=== PATIENT | female | born 1980 ===

== ENCOUNTER 2017-08-05 04:15 | Inpatient (IN) | payer MEDICAID ==
[2017-08-05] MEDS ORDERED: Sodium Chloride 0.9% 1,000 ML IV STA (04:34)
[2017-08-05] MEDS ORDERED: Ondansetron 4 MG/2 ML SDV IVPUSH ONE ×2 (04:34→10:12)
[2017-08-05] MEDS ORDERED: HYDROmorphone 1 MG/ML Syringe IVPUSH ONE (04:36)
--- NOTE | 2017-08-05 04:40 | EDM.PDOC ---
ED HPI GENERAL MEDICAL PROBLEM - General Chief Complaint: Gastrointestinal Problem Stated Complaint: VOMITING/RECTAL BLEEDING/ABDOMINAL PAIN Time Seen by Provider: 08/05/17 04:31 Source of Information: Reports: Patient History Limitations: Reports: No Limitations - History of Present Illness INITIAL COMMENTS - FREE TEXT/NARRATIVE: The patient presents with abdominal pain, nausea, vomiting and bloody diarrhea. This all started last night around 6pm. She says the pain is around the umbilicus. She has blood in her stool. She has fever and chills. She denies chest pain or shortness of breath. She has no dysuria. She has not been around anyone who is sick. She has not eaten any bad food. She still has her gallbladder and appendix. Onset: Gradual Duration: Day(s): (Yesterday at 6pm) Location: Reports: Abdomen Quality: Reports: Sharp Severity: Moderate Improves with: Reports: None Worsens with: Reports: None Associated Symptoms: Reports: Fever/Chills, Nausea/Vomiting. Denies: Chest Pain , Cough, Headaches, Shortness of Breath Abdomen Pain Score (Numeric/FACES): 10 - Related Data Allergies Allergy/AdvReac Type Severity Reaction Status Date / Time bupropion HCl Allergy Cannot Verified 08/05/17 04:25 [From Wellbutrin] Remember meloxicam [From Mobic] Allergy Cannot Verified 08/05/17 04:25 Remember Penicillins AdvReac YEAST Verified 08/05/17 04:25 INFECTION Home Meds: Home Meds . 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 (See Below) Other OB/BYN History: breast mass, mastodynia, nipple discharge, vaginitis, vaginosis Musculoskeletal History: Reports: Back Pain, Chronic Other Musculoskeletal History: back pain, carpal tunnel syndrome, back spasms Neurological History: Reports: None Other Neuro History: tingling in the feet CLBP Psychiatric History: Reports: Anxiety, Depression, Panic Attack Other Psychiatric History: insomnia Endocrine/Metabolic History: Reports: None Immunologic History: Reports: None Oncologic (Cancer) History: Reports: None Dermatologic History: Reports: None - Past Surgical History HEENT Surgical History: Reports: Tonsillectomy Female Surgical History: Reports: Hysterectomy, Tubal Ligation Musculoskeletal Surgical History: Reports: Carpal Tunnel Social & Family History - Family History Cardiac: Reports: Hypertension Immunologic: Reports: Other (See Below) Other Immunologic Family History: brother has hepatits c Oncologic: Reports: Brain, Breast, Esophageal - Tobacco Use Smoking Status *Q: Current Every Day Smoker Years of Tobacco use: 20 Packs/Tins Daily: 0.5 Second Hand Smoke Exposure: Yes - Alcohol Use Days Per Week of Alcohol Use: 0 - Recreational Drug Use Recreational Drug Use: No Drug Use in Last 12 Months: No ED ROS GENERAL - Review of Systems Review Of Systems: See Below Constitutional: Reports: Fever, Chills HEENT: Reports: No Symptoms Respiratory: Reports: No Symptoms Cardiovascular: Reports: No Symptoms Endocrine: Reports: No Symptoms GI/Abdominal: Reports: Abdominal Pain, Diarrhea, Nausea, Vomiting : Reports: No Symptoms Musculoskeletal: Reports: No Symptoms ED EXAM, GI/ABD - Physical Exam Exam: See Below Exam Limited By: No Limitations General Appearance: Alert, No Apparent Distress Ears: Normal External Exam Nose: Normal Inspection Head: Atraumatic, Normocephalic Neck: Normal Inspection Respiratory/Chest: No Respiratory Distress, Lungs Clear, Normal Breath Sounds Cardiovascular: Regular Rate, Rhythm, No Edema, No Murmur GI/Abdominal Exam: Soft, No Organomegaly, No Mass, Tender (Moderate periumbilical pain) Back Exam: Normal Inspection Extremities: Normal Inspection Course - Vital Signs Last Recorded V/S: Last Vital Signs Temp 97.9 F 08/05/17 04:26 Pulse 69 08/05/17 04:26 Resp 16 08/05/17 04:26 BP 162/96 H 08/05/17 04:26 Pulse Ox 100 08/05/17 04:26 - Orders/Labs/Meds Orders: Active Orders 24 hr Category Date Time Status Peripheral IV Care [RC] . DIRECTED Care 08/05/17 04:34 Active CULTURE STOOL + SHIGATOX [RM] Stat Lab 08/05/17 04:39 Received Levofloxacin/Dextrose 5%-Water [Levaquin in D5W 500 MG/ Med 08/05/17 06:41 Active 100 ML] 500 mg Premix Bag 1 bag IV ONETIME Sodium Chloride 0.9% [Saline Flush] Med 08/05/17 04:34 Active 10 ml FLUSH ASDIRECTED PRN metroNIDAZOLE/Normal Saline [Flagyl 500 MG in NS 100 ML Med 08/05/17 06:41 Active ] 500 mg Premix Bag 1 bag IV ONETIME ED Antiemetic Medication Reflex [OM.PC] Stat Oth 08/05/17 04:35 Ordered Peripheral IV Insertion Adult [OM.PC] Stat Oth 08/05/17 04:34 Ordered Medication Orders Levofloxacin/Dextrose 500 mg/ (Premix) 100 mls @ 100 mls/hr IV ONETIME ONE Stop: 08/05/17 07:40 Last Admin: 08/05/17 06:47 Dose: 100 mls/hr Metronidazole 500 mg/ Premix 100 mls @ 100 mls/hr IV ONETIME ONE Stop: 08/05/17 07:40 Sodium Chloride (Saline Flush) 10 ml FLUSH ASDIRECTED PRN PRN Reason: Keep Vein Open Last Admin: 08/05/17 06:07 Dose: 10 ml Admin: 08/05/17 05:23 Dose: 10 ml Labs: Laboratory Tests 08/05/17 08/05/17 08/05/17 Range/Units 04:33 04:33 04:33 WBC 17.90 H (3.98-10.04) K/mm3 RBC 5.84 H (3.98-5.22) M/mm3 Hgb 17.4 H (11.2-15.7) gm/L Hct 50.8 H (34.1-44.9) % MCV 87.0 (79.4-94.8) fl MCH 29.8 (25.6-32.2) pg MCHC 34.3 (32.2-35.5) g/dl RDW Std Deviation 41.7 (36.4-46.3) fL Plt Count 241 (182-369) K/mm3 MPV 10.9 (9.4-12.3) fl Neut % (Auto) 89.1 H (34.0-71.1) % Lymph % (Auto) 6.7 L (19.3-51.7) % [place] % (Auto) 3.5 L (4.7-12.5) % Eos % (Auto) 0.1 L (0.7-5.8) Baso % (Auto) 0.2 (0.1-1.2) % Neut # (Auto) 15.94 H (1.56-6.13) K/mm3 Lymph # (Auto) 1.20 (1.18-3.74) K/mm3 [place] # (Auto) 0.63 H (0.24-0.36) K/mm3 Eos # (Auto) 0.01 L (0.04-0.36) K/mm3 Baso # (Auto) 0.04 (0.01-0.08) K/mm3 Manual Slide Review Normal smear Sodium 143 (136-145) mEq/L Potassium 4.0 (3.5-5.1) mEq/L Chloride 104 (98-107) mEq/L Carbon Dioxide 23 (21-32) mEq/L Anion Gap 20.0 H (5-15) BUN 16 (7-18) mg/dL Creatinine 0.9 (0.55-1.02) mg/dL Est Cr Clr Drug Dosing 67.03 mL/min Estimated GFR (MDRD) > 60 (>60) mL/min BUN/Creatinine Ratio 17.8 (14-18) Glucose 123 H (74-106) mg/dL Calcium 9.8 (8.5-10.1) mg/dL Total Bilirubin 0.5 (0.2-1.0) mg/dL AST 20 (15-37) U/L ALT 40 (14-59) U/L Alkaline Phosphatase 147 H (46-116) U/L Total Protein 8.7 H (6.4-8.2) g/dl Albumin 4.9 (3.4-5.0) g/dl Globulin 3.8 gm/dL Albumin/Globulin Ratio 1.3 (1-2) Lipase 78 (73-393) U/L HCG, Qual Negative (NEGATIVE) Urine Color (Yellow) Urine Appearance (Clear) Urine pH (5.0-8.0) Ur Specific [place] (1.005-1.030) Urine Protein (Negative) Urine Glucose (UA) (Negative) Urine Ketones (Negative) Urine Occult Blood (Negative) Urine Nitrite (Negative) Urine Bilirubin (Negative) Urine Urobilinogen (0.2-1.0) Ur Leukocyte Esterase (Negative) Urine RBC (0-5) /hpf Urine WBC (0-5) /hpf Ur Epithelial Cells (0-5) /hpf Amorphous Sediment (NOT SEEN) /hpf Urine Bacteria (FEW) /hpf Urine Mucus (FEW) /hpf C.difficile 027-[id number] C. difficile Tox (PCR) 08/05/17 08/05/17 Range/Units 04:34 04:34 WBC (3.98-10.04) K/mm3 RBC (3.98-5.22) M/mm3 Hgb (11.2-15.7) gm/L Hct (34.1-44.9) % MCV (79.4-94.8) fl MCH (25.6-32.2) pg MCHC (32.2-35.5) g/dl RDW Std Deviation (36.4-46.3) fL Plt Count (182-369) K/mm3 MPV (9.4-12.3) fl Neut % (Auto) (34.0-71.1) % Lymph % (Auto) (19.3-51.7) % [place] % (Auto) (4.7-12.5) % Eos % (Auto) (0.7-5.8) Baso % (Auto) (0.1-1.2) % Neut # (Auto) (1.56-6.13) K/mm3 Lymph # (Auto) (1.18-3.74) K/mm3 [place] # (Auto) (0.24-0.36) K/mm3 Eos # (Auto) (0.04-0.36) K/mm3 Baso # (Auto) (0.01-0.08) K/mm3 Manual Slide Review Sodium (136-145) mEq/L Potassium (3.5-5.1) mEq/L Chloride (98-107) mEq/L Carbon Dioxide (21-32) mEq/L Anion Gap (5-15) BUN (7-18) mg/dL Creatinine (0.55-1.02) mg/dL Est Cr Clr Drug Dosing mL/min Estimated GFR (MDRD) (>60) mL/min BUN/Creatinine Ratio (14-18) Glucose (74-106) mg/dL Calcium (8.5-10.1) mg/dL Total Bilirubin (0.2-1.0) mg/dL AST (15-37) U/L ALT (14-59) U/L Alkaline Phosphatase (46-116) U/L Total Protein (6.4-8.2) g/dl Albumin (3.4-5.0) g/dl Globulin gm/dL Albumin/Globulin Ratio (1-2) Lipase (73-393) U/L HCG, Qual (NEGATIVE) Urine Color Yellow (Yellow) Urine Appearance Turbid H (Clear) Urine pH 5.5 (5.0-8.0) Ur Specific [place] > or = 1.030 (1.005-1.030) Urine Protein 2+ H (Negative) Urine Glucose (UA) Negative (Negative) Urine Ketones 2+ H (Negative) Urine Occult Blood 2+ H (Negative) Urine Nitrite Negative (Negative) Urine Bilirubin 1+ H (Negative) Urine Urobilinogen 0.2 (0.2-1.0) Ur Leukocyte Esterase Negative (Negative) Urine RBC 0-5 (0-5) /hpf Urine WBC 0-5 (0-5) /hpf Ur Epithelial Cells 5-10 H (0-5) /hpf Amorphous Sediment Many H (NOT SEEN) /hpf Urine Bacteria Moderate H (FEW) /hpf Urine Mucus Not seen (FEW) /hpf C.difficile [id number]-[id number] Presumptive negative C. difficile Tox (PCR) Negative Meds: Medications Generic Name Dose Route Start Last Admin Trade Name Freq PRN Reason Stop Dose Admin Levofloxacin/Dextrose 500 mg/ 100 mls @ 100 mls/hr 08/05/17 06:41 08/05/17 06 :47 Premix IV 08/05/17 07:40 100 mls/hr ONETIME ONE Administration Metronidazole 500 mg/ Premix 100 mls @ 100 mls/hr 08/05/17 06:41 IV 08/05/17 07:40 ONETIME ONE Sodium Chloride 10 ml 08/05/17 04:34 08/05/17 06:07 Saline Flush FLUSH 10 ml ASDIRECTED PRN Administration Keep Vein Open Discontinued Medications Generic Name Dose Route Start Last Admin Trade Name Freq PRN Reason Stop Dose Admin Diatrizoate Meglum/Diatrizoate Sod 90 ml 08/05/17 05:49 08/05/17 06:07 Gastrografin 37% PO 08/05/17 05:50 90 ml ONETIME ONE Administration Hydromorphone HCl 1 mg 08/05/17 04:36 08/05/17 05:00 Dilaudid IVPUSH 08/05/17 04:37 1 mg ONETIME ONE Administration Hydromorphone HCl 0.5 mg 08/05/17 06:21 08/05/17 06:30 Dilaudid IVPUSH 08/05/17 06:22 0.5 mg ONETIME ONE Administration Sodium Chloride 1,000 mls @ 1,000 mls/hr 08/05/17 04:34 08/05/17 05:00 Normal Saline IV 08/05/17 05:33 1,000 mls/hr .BOLUS STA Administration Iopamidol 125 ml 08/05/17 05:49 08/05/17 06:07 Isovue-300 (61%) IVPUSH 08/05/17 05:50 125 ml ONETIME ONE Administration Metoclopramide HCl 10 mg 08/05/17 06:21 08/05/17 06:30 Reglan IVPUSH 08/05/17 06:22 10 mg ONETIME ONE Administration Ondansetron HCl 4 mg 08/05/17 04:34 08/05/17 05:00 Zofran IVPUSH 08/05/17 04:35 4 mg ONETIME ONE Administration - Re-Assessments/Exams Free Text/Narrative Re-Assessment/Exam: 08/05/17 04:39 I ordered an IV NS 1L bolus, zofran 4mg IV, dilaudid 1mg IV, labs, US and a CT of her abdomen and pelvis. 08/05/17 06:43 Her WBC was elevated at 17.9. Her Hgb was elevated at 17.4. Her alk phos was elevated at 147. Her HCG was negative. Her lipase was negative. Her UA shows no UTI. Her c-dif was negative. Her stool had some WBCs in it. Her CT shows diffuse colonic wall thickening most prominent within the transverse and right colon. Findings are compatible with nonspecific colitis. Slightly dilated upper small bowel most likely representing a mild focal ileus due to the colitis. Fatty infiltration within the liver. She had more pain so I ordered dilaudid 0.5mg IV and reglan 10mg IV. I ordered flagyl 500mg IV and levaquin 500mg IV. 08/05/17 07:00 I feel she needs to be admitted. I talked with Dr Gill and she agreed to the admission. Departure - Departure Time of Disposition: 07:05 Disposition: Admitted As Inpatient 65 Clinical Impression: Colitis, Ileus, Hematochezia - Discharge Information Referrals: PCP,None [Primary Care Provider] - Forms: ED Department Discharge - My Orders Last 24 Hours: My Active Orders 08/05/17 04:34 Peripheral IV Care [RC] . DIRECTED Sodium Chloride 0.9% [Saline Flush] 10 ml FLUSH ASDIRECTED PRN Peripheral IV Insertion Adult [OM.PC] Stat 08/05/17 04:35 ED Antiemetic Medication Reflex [OM.PC] Stat 08/05/17 04:39 CULTURE STOOL + SHIGATOX [RM] Stat 08/05/17 06:41 Levofloxacin/Dextrose 5%-Water [Levaquin in D5W 500 MG/100 ML] 500 mg Premix Bag 1 bag IV ONETIME metroNIDAZOLE/Normal Saline [Flagyl 500 MG in NS 100 ML] 500 mg Premix Bag 1 bag IV ONETIME - Assessment/Plan Last 24 Hours: My Active Orders 08/05/17 04:34 Peripheral IV Care [RC] . DIRECTED Sodium Chloride 0.9% [Saline Flush] 10 ml FLUSH ASDIRECTED PRN Peripheral IV Insertion Adult [OM.PC] Stat 08/05/17 04:35 ED Antiemetic Medication Reflex [OM.PC] Stat 08/05/17 04:39 CULTURE STOOL + SHIGATOX [RM] Stat 08/05/17 06:41 Levofloxacin/Dextrose 5%-Water [Levaquin in D5W 500 MG/100 ML] 500 mg Premix Bag 1 bag IV ONETIME metroNIDAZOLE/Normal Saline [Flagyl 500 MG in NS 100 ML] 500 mg Premix Bag 1 bag IV ONETIME
[2017-08-05] MEDS: Sodium Chloride 0.9% 10 ML Syringe FLUSH PRN ×2 (05:23→06:07)
[2017-08-05] MEDS ORDERED: Diatrizoate Meglumine/Diatrizoate Sodium 37% 120 ML Bottle PO ONE (05:49)
[2017-08-05] MEDS ORDERED: Iopamidol 612 MG/ML 150 ML Bottle IVPUSH ONE (05:49)
[2017-08-05] MEDS ORDERED: Metoclopramide 10 MG/2 ML SDV IVPUSH ONE (06:21)
[2017-08-05] MEDS ORDERED: HYDROmorphone 0.5 MG/0.5 ML Syringe IVPUSH ONE (06:21)
--- NOTE | 2017-08-05 06:25 | CT ---
CT abdomen and pelvis Technique: Multiple axial sections were obtained from above the dome of the diaphragm inferiorly to the pubic symphysis. Intravenous and oral contrast was utilized. Delayed image bladder. Comparison: Prior CT abdomen exam of 10/01/13. Findings: Bowel wall thickening noted within the colon most prominent within portions of the transverse colon and right colon. Findings are compatible with nonspecific colitis. Visualized lung bases shows nothing acute. Liver shows mild fatty infiltration. No calcified gallstones are seen within the gallbladder. Spleen appears within normal limits. Adrenal glands show no nodule. Kidneys show contrast enhancement without hydronephrosis or mass. Pancreas is within normal limits. Slightly dilated upper small bowel loops are seen most likely due to slight focal ileus due to the colitis. Bowel is otherwise unremarkable. No pelvic mass or adenopathy is seen. Appendix is not definitely visualized. Terminal ileum appears unremarkable. No free fluid is seen. Delayed images shows contrast within the distal ureters and within the bladder. Bone window settings were reviewed which appear within normal limits for the patient's age. Impression: 1. Diffuse colonic wall thickening most prominent within the transverse and right colon. Findings are compatible with nonspecific colitis. 2. Slightly dilated upper small bowel most likely representing a mild focal ileus due to the colitis. 3. Fatty infiltration within the liver. Diagnostic code #3
[2017-08-05] MEDS ORDERED: Levofloxacin/Dextrose 5%-Water 500 MG in Premix Bag 1 BAG IV ONE (06:41)
[2017-08-05] MEDS ORDERED: metroNIDAZOLE/Normal Saline 500 MG in Premix Bag 1 BAG IV ONE (06:41)
[2017-08-05] MEDS ORDERED: HYDROmorphone 1 MG/ML Syringe IVPUSH STA (07:46)
[2017-08-05] MEDS ORDERED: HYDROmorphone 0.5 MG/0.5 ML Syringe IVPUSH STA ×2 (09:54→12:15)
[2017-08-05] MEDS ORDERED: Ondansetron 4 MG Tab.DIS PO PRN (12:16)
[2017-08-05] MEDS ORDERED: Albuterol 0.083% 2.5 MG/3 ML Neb Soln NEB PRN (12:16)
[2017-08-05] MEDS ORDERED: Ondansetron 4 MG/2 ML SDV IV PRN (12:16)
[2017-08-05] MEDS ORDERED: Acetaminophen 325 MG Tab PO PRN (12:16)
[2017-08-05] MEDS ORDERED: Temazepam 7.5 MG Cap PO PRN (12:16)
--- NOTE | 2017-08-05 12:26 | PCM.HP ---
<GildardoLittle M - Last Filed: 08/05/17 14:03> H&P History of Present Illness - General Date of Service: 08/05/17 Admit Problem/Dx: Admission Diagnosis/Problem Admission Diagnosis/Problem GI bleed not requiring more than 4 units of blood in 24 hours, ICU, or surgery Source of Information: Patient, Other (ED notes) History Limitations: Reports: No Limitations - History of Present Illness Initial Comments - Free Text/Narative: Ellie is a 37-year-old female who came in ambulatory to the emergency room zipper measurer hours with abdominal pain cramping and bloody diarrhea stools associated with vomiting. This came on acutely at approximately 6 PM last evening initially with crampy abdominal pain around her umbilicus then with vomiting then with bloody diarrhea to follow immediately after her vomiting. She is unable to count how many times she has vomited or had bloody diarrhea since 6 PM but it has been multiple multiple times. She felt well prior to 6 PM with no concerns complaints of abdominal pain, heartburn or any other problems. She denies any new foods drink exposure to illness or other sick contacts. She's not had any travel outside of the [facility] with the country. She' s never had any episodes like this before. No history of inflammatory bowel disease or other similar problems. No family history of IBD. She does report she's had colonoscopies in the past which have been normal, last one being 4-5 years ago. She does state she has hemorrhoids and has had an anal fissure in the past both with bleeding which had precipitated the colonoscopies. She denies fevers chills or sweats. No back pain. No chest pain racing heartbeats shortness of breath. No dizziness. She's not had history of anemia in the past. No bowel surgeries. She has had a hysterectomy with anterior and posterior repair. She has 3 children. She works at [employer] in [place]. She does smoke cigarettes half a pack a day for 20 years. She denies any alcohol use. ER evaluation is as follows: CBC is with WBC of 17.90, RBC 5.84, and hemoglobin 17.4, hematocrit 50.8, platelets normal at 241. CMP is within normal sodium- potassium B UN and creatinine. Glucose is 123. Liver enzymes normal AST, ALP, ALP is elevated at 147. Normal bilirubin. Lipase is normal at 78. Urine test is negative, she is status post hysterectomy. UA is with turbid- appearing urine specific gravity greater than 1.0302+ protein, 2+ ketones, 2+ blood, negative nitrates, 1+ bilirubin, negative leukocytes. C. difficile obtained in the emergency department is negative. She did have a CT of the abdominal abdomen and pelvis showing diffuse colonic wall thickening most prominent within the transverse and right colon. Findings compatible with nonspecific colitis. Slightly dilated upper small bowel most likely REM presenting a mild focal ileus due to colitis. Fatty infiltration within the liver. She received 1 L of normal saline, Zofran 4 mg, Dilaudid IV 2, Reglan 10 mg IV. She also received Flagyl 500 mg IV and Levaquin 500 mg IV. Hospitalist service is consulted for admission for hematochezia and abdominal pain. PCP is Ondina Jade with [facility]. She is full CODE STATUS. Onset of Symptoms: Reports: Sudden Duration of Symptoms: Reports: Hour(s): (started at 6pm) Location: Reports: Abdomen Quality: Reports: Stabbing, Other (cramping) Improves with: Reports: Rest Worsens with: Reports: Eating, Movement Context: Denies: Sick Contact, Activity/Exercise, Lifting, Exertion, Trauma, Travel Associated Symptoms: Reports: Nausea/Vomiting, Weakness. Denies: Confusion, Chest Pain, Cough, cough w sputum, Diaphoresis, Fever/Chills, Headaches, Shortness of Breath Abdomen Pain Score (Numeric/FACES): 10 - Related Data Allergies/Adverse Reactions: Allergies Allergy/AdvReac Type Severity Reaction Status Date / Time bupropion HCl Allergy Cannot Verified 08/05/17 14:09 [From Wellbutrin] Remember meloxicam [From Mobic] Allergy Cannot Verified 08/05/17 14:09 Remember Penicillins AdvReac YEAST Verified 08/05/17 14:09 INFECTION Home Medications: Home Meds Ibuprofen 800 mg PO Q8HR PRN 08/05/17 [History] Past Medical History HEENT History: Reports: Impaired Vision, Sinusitis, Other (See Below) Other HEENT History: Wears glasses Cardiovascular History: Reports: Angina, High Cholesterol Other Cardiovascular History: denies CP Respiratory History: Reports: Other (See Below) Other Respiratory History: cough, upper respiratory infection Gastrointestinal History: Reports: Chronic Diarrhea, Hemorrhoids Other Gastrointestinal History: gastroenteritis, vomiting Genitourinary History: Reports: None Other Genitourinary History: dysuria [employer] History: Reports: Other (See Below) Other OB/BYN History: breast mass, mastodynia, nipple discharge, vaginitis, vaginosis Musculoskeletal History: Reports: Back Pain, Chronic Other Musculoskeletal History: back pain, carpal tunnel syndrome, back spasms Neurological History: Reports: None Other Neuro History: tingling in the feet CLBP Psychiatric History: Reports: Anxiety, Depression, Panic Attack Other Psychiatric History: insomnia Endocrine/Metabolic History: Reports: None Immunologic History: Reports: None Oncologic (Cancer) History: Reports: None Dermatologic History: Reports: None - Past Surgical History HEENT Surgical History: Reports: Tonsillectomy Female Surgical History: Reports: Hysterectomy, Tubal Ligation Musculoskeletal Surgical History: Reports: Carpal Tunnel Social & Family History - Family History Cardiac: Reports: Hypertension Immunologic: Reports: Other (See Below) Other Immunologic Family History: brother has hepatits c Oncologic: Reports: Brain, Breast, Esophageal - Tobacco Use Smoking Status *Q: Current Every Day Smoker Years of Tobacco use: 20 Packs/Tins Daily: 0.5 Second Hand Smoke Exposure: Yes - Alcohol Use Days Per Week of Alcohol Use: 0 - Recreational Drug Use Recreational Drug Use: No Drug Use in Last 12 Months: No H&P Review of Systems - Review of Systems: Review Of Systems: See Below General: Reports: Chills, Malaise, Weakness, Fatigue, Decreased Appetite. Denies: Fever HEENT: Reports: No Symptoms Pulmonary: Reports: No Symptoms, Cough (chronic "smokers cough"). Denies: Shortness of Breath, Wheezing Cardiovascular: Reports: No Symptoms. Denies: Chest Pain, Palpitations, Lightheadedness Gastrointestinal: Reports: Abdominal Pain, Bloody Stool, Diarrhea, Decreased Appetite, Hematochezia, Nausea, Vomiting. Denies: Hematemesis Genitourinary: Reports: No Symptoms, Flank Pain, Other (does report "vaginal infection or yeast infection" last week, was on "amoxicillin and something else ", symptoms have resolved. Denies UTI at that time). Denies: Dysuria, Frequency , Burning, Urgency Musculoskeletal: Reports: Other (abdominal muscles are sore) Skin: Reports: No Symptoms. Denies: Rash Psychiatric: Reports: No Symptoms Neurological: Reports: No Symptoms Exam - Exam Exam: See Below - Vital Signs Vital Signs: Last Vital Signs Temp 97.9 F 08/05/17 04:26 Pulse 69 08/05/17 04:26 Resp 16 08/05/17 04:26 BP 162/96 H 08/05/17 04:26 Pulse Ox 100 08/05/17 04:26 Weight: 72.575 kg - Exam General: Alert, Oriented, Cooperative HEENT: Conjunctiva Clear, EOMI, Hearing Intact, Mucosa Moist & [place], Pupils Equal, PERRLA. No: Scleral Icterus Neck: Supple, Full Range of Motion. No: JVD Lungs: Clear to Auscultation, Normal Respiratory Effort Cardiovascular: Regular Rate, Regular Rhythm, Normal S1, Normal S2 GI/Abdominal Exam: Normal Bowel Sounds, Soft, No Organomegaly, Tender ( umbilicus and below). No: Guarding, Rigid, Rebound (Female) Exam: Deferred Rectal (Female) Exam: Deferred Back Exam: Normal Inspection Extremities: Normal Inspection, No Pedal Edema, Normal Capillary Refill Peripheral Pulses: 2+: Radial (L), Radial (R), Dorsalis Pedis (L), Dorsalis Pedis (R) Skin: Warm, Dry, Intact Neurological: Cranial Nerves Intact Neuro Extensive - Mental Status: Alert, Oriented x3, Normal Mood/Affect, Normal Cognition, Memory Intact Neuro Extensive - Motor, Sensory, Reflexes: CN II-XII Intact Psychiatric: Alert, Normal Affect, Normal Mood - Patient Data Result Diagrams: 08/05/17 04:33 08/05/17 04:33 *Q Meaningful Use (ADM) - VTE *Q VTE Criteria *Q: - Stroke *Q Stroke Criteria *Q: - AMI *Q AMI Criteria *Q: - Problem List (1) Colitis SNOMED Code(s): 17328446 ICD Code: K52.9 - NONINFECTIVE GASTROENTERITIS AND COLITIS, UNSPECIFIED Status: Acute Priority: High Current Visit: Yes (2) Hematochezia SNOMED Code(s): 815691850 ICD Code: K92.1 - MELENA Status: Acute Priority: High Current Visit: Yes (3) Ileus SNOMED Code(s): 601030612 ICD Code: K56.7 - ILEUS, UNSPECIFIED Status: Acute Priority: High Current Visit: Yes (4) Vomiting SNOMED Code(s): 659003123 ICD Code: R11.10 - VOMITING, UNSPECIFIED Status: Acute Priority: High Current Visit: Yes Problem List Initiated/Reviewed/Updated: Yes Orders Last 24hrs: Active Orders 24 hr Category Date Time Status Admission Status [Patient Status] [ADT] Routine ADT 08/05/17 09:20 Active Patient Status [ADT] Routine ADT 08/05/17 12:17 Ordered Ambulate [RC] QSHIFT Care 08/05/17 12:16 Ordered Antiembolic Devices [RC] PER UNIT ROUTINE Care 08/05/17 12:18 Ordered Height and Weight [RC] DAILY Care 08/05/17 12:16 Ordered Intake and Output [RC] QSHIFT Care 08/05/17 12:18 Ordered Oxygen Therapy [RC] PRN Care 08/05/17 12:17 Ordered RT Aerosol Therapy [RC] ASDIRECTED Care 08/05/17 12:20 Ordered Up With Assistance [RC] ASDIRECTED Care 08/05/17 12:16 Ordered VTE/DVT Education [RC] PER UNIT ROUTINE Care 08/05/17 12:17 Ordered Vital Signs [RC] Q4H Care 08/05/17 12:17 Ordered Nothing per Oral Now Diet [DIET] Diet 08/05/17 Dinner Active BASIC METABOLIC PANEL,BMP [CHEM] AM Lab 08/06/17 05:11 Ordered BASIC METABOLIC PANEL,BMP [CHEM] AM Lab 08/07/17 05:11 Ordered BASIC METABOLIC PANEL,BMP [CHEM] AM Lab 08/08/17 05:11 Ordered BASIC METABOLIC PANEL,BMP [CHEM] AM Lab 08/09/17 05:11 Ordered BASIC METABOLIC PANEL,BMP [CHEM] Routine Lab 08/05/17 12:24 Ordered C-REACTIVE PROTEIN [CHEM] AM Lab 08/06/17 05:11 Ordered C-REACTIVE PROTEIN [CHEM] AM Lab 08/07/17 05:11 Ordered C-REACTIVE PROTEIN [CHEM] AM Lab 08/08/17 05:11 Ordered C-REACTIVE PROTEIN [CHEM] AM Lab 08/09/17 05:11 Ordered CBC WITH AUTO DIFF [HEME] AM Lab 08/06/17 05:11 Ordered CBC WITH AUTO DIFF [HEME] AM Lab 08/07/17 05:11 Ordered CBC WITH AUTO DIFF [HEME] AM Lab 08/08/17 05:11 Ordered CBC WITH AUTO DIFF [HEME] AM Lab 08/09/17 05:11 Ordered CRP [C-REACTIVE PROTEIN] [CHEM] Routine Lab 08/05/17 12:24 Ordered CULTURE BLOOD [BC] Stat Lab 08/05/17 12:25 Ordered CULTURE BLOOD [BC] Stat Lab 08/05/17 12:25 Ordered MAGNESIUM [CHEM] AM Lab 08/06/17 05:11 Ordered MAGNESIUM [CHEM] AM Lab 08/07/17 05:11 Ordered MAGNESIUM [CHEM] AM Lab 08/08/17 05:11 Ordered MAGNESIUM [CHEM] AM Lab 08/09/17 05:11 Ordered MAGNESIUM [CHEM] Routine Lab 08/05/17 12:24 Ordered Acetaminophen [Tylenol] Med 08/05/17 12:16 Ordered 650 mg PO Q4H PRN Acetaminophen/HYDROcodone [[place] 325-5 MG] Med 08/05/17 12:16 Ordered 1 tab PO Q4H PRN Albuterol [Proventil Neb Soln] Med 08/05/17 12:16 Ordered 2.5 mg NEB Q2H PRN Dextrose 5%-1/2 Normal Saline @ 125 MLS/HR(1000ml) Med 08/05/17 12:30 Ordered Dextrose 5%-0.45% NaCl [Dextrose 5%-1/2 NS] 1,000 ml IV ASDIRECTED HYDROmorphone [Dilaudid] Med 08/05/17 12:16 Ordered 0.5 mg IVPUSH Q2H PRN Levofloxacin/Dextrose 5%-Water [Levaquin in D5W 750 MG/ Med 08/05/17 12:30 Ordered 150 ML] 750 mg Premix Bag 1 bag IV Q24H Ondansetron [Zofran ODT] Med 08/05/17 12:16 Ordered 4 mg PO Q4H PRN Ondansetron [Zofran] Med 08/05/17 12:16 Ordered 4 mg IV Q4H PRN Pantoprazole [ProTONIX IV] Med 08/05/17 21:00 Ordered 40 mg IV Q12HR Saccharomyces Boulardii [Florastor] Med 08/05/17 21:00 Ordered 250 mg PO BID Temazepam [Restoril] Med 08/05/17 12:16 Ordered 7.5 mg PO BEDTIME PRN metroNIDAZOLE/Normal Saline [Flagyl 500 MG in NS 100 ML Med 08/05/17 12:30 Ordered ] 500 mg Premix Bag 1 bag IV Q8H Blood Culture x2 Reflex Set [OM.PC] Stat Oth 08/05/17 12:25 Ordered Sequential Compression Device [OM.PC] Per Unit Routine Oth 08/05/17 12:18 Ordered Resuscitation Status Routine Resus Stat 08/05/17 12:16 Ordered Medication Orders Acetaminophen (Tylenol) 650 mg PO Q4H PRN PRN Reason: Pain (Mild 1-3)/fever Hydrocodone Bitart/Acetaminophen ([place] 325-5 Mg) 1 tab PO Q4H PRN PRN Reason: Pain (moderate 4-6) Albuterol (Proventil Neb Soln) 2.5 mg NEB Q2H PRN PRN Reason: Shortness Of Breath/wheezing Hydromorphone HCl (Dilaudid) 0.5 mg IVPUSH Q2H PRN PRN Reason: Pain (severe 7-10) Dextrose/Sodium Chloride (Dextrose 5%-1/2 Ns) 1,000 mls @ 125 mls/hr IV ASDIRECTED HEYDI Levofloxacin/Dextrose 750 mg/ (Premix) 150 mls @ 100 mls/hr IV Q24H HEYDI Metronidazole 500 mg/ Premix 100 mls @ 100 mls/hr IV Q8H HEYDI Ondansetron HCl (Zofran Odt) 4 mg PO Q4H PRN PRN Reason: nausea, able to take PO Ondansetron HCl (Zofran) 4 mg IV Q4H PRN PRN Reason: Nausea/Vomiting Pantoprazole Sodium (Protonix Iv) 40 mg IV Q12HR HYEDI Saccharomyces Boulardii (Florastor) 250 mg PO BID [facility] Sodium Chloride (Saline Flush) 10 ml FLUSH ASDIRECTED PRN PRN Reason: Keep Vein Open Last Admin: 08/05/17 06:07 Dose: 10 ml Admin: 08/05/17 05:23 Dose: 10 ml Temazepam (Restoril) 7.5 mg PO BEDTIME PRN PRN Reason: Sleep Assessment/Plan Comment:: Impression/plan Colitis, noted on CT scan of the abdomen and pelvis -C. difficile is obtained in the ED and negative, WBCs 4 stool is positive. Awaiting stool cultures. -Nothing by mouth except ice chips and medications. -Follow daily labs, repeat hemoglobin electrolytes and magnesium since admission as was seen in the zipper measurer hours to the ED -Strongly suspect inflammatory bowel disease based on patient's age, abrupt onset of symptoms, gem bloody diarrhea, no recent travel no new foods no recent sick contacts or other exposures that she is aware of. -Consider general surgery consult if not improving with bowel rest and conservative treatment -IV hydration with D5 0.45%NS @125cc/hr Hematochezia, plan and treatment as noted above Vomiting -Antiemetics PRN -Protonix IV BID -IV fluid hydration with D5 0.45%NS to run at 125 mL an hour while she is NPO History of hemorrhoids/anal fissures in the past with colonoscopic eval in the past; states last endoscopy ws 4-5 years ago -Preparation H PRN -Tucks wipes PRN Other: Tobacco use/smoking--Nicotine patch DVT prophylax- SCD's GI prophylax as above Ambulate when able Bowel rest except ice chips/meds Am labs Blood cultures ordered on admission Patient is Full Code status PCP is ARVIN Bloom in [place]. <Rayna Gill M - Last Filed: 08/05/17 15:40> H&P History of Present Illness - General Admit Problem/Dx: Admission Diagnosis/Problem Admission Diagnosis/Problem GI bleed not requiring more than 4 units of blood in 24 hours, ICU, or surgery Exam - Vital Signs Vital Signs: Last Vital Signs Temp 36.6 C 08/05/17 04:26 Pulse 61 08/05/17 13:40 Resp 16 08/05/17 13:40 BP 155/77 H 08/05/17 13:40 Pulse Ox 99 08/05/17 13:40 - Patient Data Lab Results Last 24 hrs: Laboratory Results - last 24 hr 08/05/17 08/05/17 Range/Units 13:00 14:20 WBC 24.07 H (3.98-10.04) K/mm3 RBC 5.54 H (3.98-5.22) M/mm3 Hgb 16.3 H (11.2-15.7) gm/L Hct 48.1 H (34.1-44.9) % MCV 86.8 (79.4-94.8) fl MCH 29.4 (25.6-32.2) pg MCHC 33.9 (32.2-35.5) g/dl RDW Std Deviation 41.9 (36.4-46.3) fL Plt Count 232 (182-369) K/mm3 MPV 10.5 (9.4-12.3) fl Sodium 141 (136-145) mEq/L Potassium 3.5 (3.5-5.1) mEq/L Chloride 104 (98-107) mEq/L Carbon Dioxide 25 (21-32) mEq/L Anion Gap 15.5 H (5-15) BUN 12 (7-18) mg/dL Creatinine 0.7 (0.55-1.02) mg/dL Est Cr Clr Drug Dosing 86.18 mL/min Estimated GFR (MDRD) > 60 (>60) mL/min BUN/Creatinine Ratio 17.1 (14-18) Glucose 118 H (74-106) mg/dL Calcium 9.2 (8.5-10.1) mg/dL Magnesium 1.9 (1.8-2.4) mg/dl C-Reactive Protein 1.3 H* (<1.0) mg/dL Result Diagrams: 08/05/17 14:20 08/05/17 13:00 *Q Meaningful Use (ADM) - VTE *Q VTE Criteria *Q: - Stroke *Q Stroke Criteria *Q: - AMI *Q AMI Criteria *Q: Orders Last 24hrs: Active Orders 24 hr Category Date Time Status Patient Status [ADT] Routine ADT 08/05/17 12:17 Active Ambulate [RC] QSHIFT Care 08/05/17 12:16 Active Antiembolic Devices [RC] PER UNIT ROUTINE Care 08/05/17 12:18 Active Height and Weight [RC] 04 Care 08/05/17 12:16 Active Intake and Output [RC] 04,16 Care 08/05/17 12:18 Active Oxygen Therapy [RC] PRN Care 08/05/17 12:17 Active RT Aerosol Therapy [RC] ASDIRECTED Care 08/05/17 12:20 Active Up With Assistance [RC] ASDIRECTED Care 08/05/17 12:16 Active VTE/DVT Education [RC] PER UNIT ROUTINE Care 08/05/17 12:17 Active Vital Signs [RC] 08,12,16,20,00,04 Care 08/05/17 12:17 Active Nothing per Oral Now Diet [DIET] Diet 08/05/17 Dinner Active BASIC METABOLIC PANEL,BMP [CHEM] AM Lab 08/06/17 05:11 Ordered BASIC METABOLIC PANEL,BMP [CHEM] AM Lab 08/07/17 05:11 Ordered BASIC METABOLIC PANEL,BMP [CHEM] AM Lab 08/08/17 05:11 Ordered BASIC METABOLIC PANEL,BMP [CHEM] AM Lab 08/09/17 05:11 Ordered C-REACTIVE PROTEIN [CHEM] AM Lab 08/06/17 05:11 Ordered C-REACTIVE PROTEIN [CHEM] AM Lab 08/07/17 05:11 Ordered C-REACTIVE PROTEIN [CHEM] AM Lab 08/08/17 05:11 Ordered C-REACTIVE PROTEIN [CHEM] AM Lab 08/09/17 05:11 Ordered CBC WITH AUTO DIFF [HEME] AM Lab 08/06/17 05:11 Ordered CBC WITH AUTO DIFF [HEME] AM Lab 08/07/17 05:11 Ordered CBC WITH AUTO DIFF [HEME] AM Lab 08/08/17 05:11 Ordered CBC WITH AUTO DIFF [HEME] AM Lab 08/09/17 05:11 Ordered CULTURE BLOOD [BC] Stat Lab 08/05/17 12:45 Received CULTURE BLOOD [BC] Stat Lab 08/05/17 13:00 Received MAGNESIUM [CHEM] AM Lab 08/06/17 05:11 Ordered MAGNESIUM [CHEM] AM Lab 08/07/17 05:11 Ordered MAGNESIUM [CHEM] AM Lab 08/08/17 05:11 Ordered MAGNESIUM [CHEM] AM Lab 08/09/17 05:11 Ordered Acetaminophen [Tylenol] Med 08/05/17 12:16 Active 650 mg PO Q4H PRN Acetaminophen/HYDROcodone [[place] 325-5 MG] Med 08/05/17 12:16 Active 1 tab PO Q4H PRN Albuterol [Proventil Neb Soln] Med 08/05/17 12:16 Active 2.5 mg NEB Q2H PRN Dextrose 5%-0.45% NaCl [Dextrose 5%-1/2 NS] 1,000 ml Med 08/05/17 12:30 Active IV ASDIRECTED HYDROmorphone [Dilaudid] Med 08/05/17 12:16 Active 0.5 mg IVPUSH Q2H PRN Levofloxacin/Dextrose 5%-Water [Levaquin in D5W 750 MG/ Med 08/06/17 06:00 Active 150 ML] 750 mg Premix Bag 1 bag IV Q24H Metoclopramide [Reglan] Med 08/05/17 13:52 Active 5 mg IVPUSH Q6H PRN Ondansetron [Zofran ODT] Med 08/05/17 12:16 Active 4 mg PO Q4H PRN Ondansetron [Zofran] Med 08/05/17 12:16 Active 4 mg IV Q4H PRN Pantoprazole [ProTONIX IV] Med 08/05/17 21:00 Active 40 mg IV Q12HR Saccharomyces Boulardii [Florastor] Med 08/05/17 21:00 Active 250 mg PO BID Temazepam [Restoril] Med 08/05/17 12:16 Active 7.5 mg PO BEDTIME PRN [place] [Tucks] Med 08/05/17 13:58 Active 1 pad TOP ASDIRECTED PRN metroNIDAZOLE/Normal Saline [Flagyl 500 MG in NS 100 ML Med 08/05/17 16:00 Active ] 500 mg Premix Bag 1 bag IV Q8H Blood Culture x2 Reflex Set [OM.PC] Stat Oth 08/05/17 12:25 Ordered Sequential Compression Device [OM.PC] Per Unit Routine Oth 08/05/17 12:18 Ordered Resuscitation Status Routine Resus Stat 08/05/17 12:16 Ordered Medication Orders Acetaminophen (Tylenol) 650 mg PO Q4H PRN PRN Reason: Pain (Mild 1-3)/fever Hydrocodone Bitart/Acetaminophen ([place] 325-5 Mg) 1 tab PO Q4H PRN PRN Reason: Pain (moderate 4-6) Last Admin: 08/05/17 14:58 Dose: 1 tab Albuterol (Proventil Neb Soln) 2.5 mg NEB Q2H PRN PRN Reason: Shortness Of Breath/wheezing Hydromorphone HCl (Dilaudid) 0.5 mg IVPUSH Q2H PRN PRN Reason: Pain (severe 7-10) Dextrose/Sodium Chloride (Dextrose 5%-1/2 Ns) 1,000 mls @ 125 mls/hr IV ASDIRECTED HEYDI Levofloxacin/Dextrose 750 mg/ (Premix) 150 mls @ 100 mls/hr IV Q24H HEYDI Metronidazole 500 mg/ Premix 100 mls @ 100 mls/hr IV Q8H HEYDI Metoclopramide HCl (Reglan) 5 mg IVPUSH Q6H PRN PRN Reason: Nausea/Vomiting Ondansetron HCl (Zofran Odt) 4 mg PO Q4H PRN PRN Reason: nausea, able to take PO Ondansetron HCl (Zofran) 4 mg IV Q4H PRN PRN Reason: Nausea/Vomiting Pantoprazole Sodium (Protonix Iv) 40 mg IV Q12HR HEYDI Saccharomyces Boulardii (Florastor) 250 mg PO BID HEYDI Sodium Chloride (Saline Flush) 10 ml FLUSH ASDIRECTED PRN PRN Reason: Keep Vein Open Last Admin: 08/05/17 06:07 Dose: 10 ml Admin: 08/05/17 05:23 Dose: 10 ml Temazepam (Restoril) 7.5 mg PO BEDTIME PRN PRN Reason: Sleep [place] (Tucks) 1 pad TOP ASDIRECTED PRN PRN Reason: hemmoroids Assessment/Plan Comment:: See above will treat and assess; can not exclude IBD
[2017-08-05] MEDS ORDERED: Famotidine 20 MG/2 ML SDV IVPUSH ONE (12:48)
[2017-08-05] MEDS ORDERED: Metoclopramide 10 MG/2 ML SDV IVPUSH PRN (13:52)
[2017-08-05] MEDS ORDERED: Witch Hazel Medicated Pads 100/Jar TOP PRN (13:58)
[2017-08-05] MEDS ORDERED: Hydrocortisone Acetate 25 MG Supp RECTAL PRN (13:58)
[2017-08-05] MEDS ORDERED: Hydrocortisone 1% Crm 30 GM Tube TOP ONE ×2 (13:59→20:00)
[2017-08-05] MEDS: Acetaminophen/HYDROcodone 325-5 MG Tab PO PRN ×2 (14:58→22:03)
[2017-08-05] MEDS: metroNIDAZOLE/Normal Saline 500 MG in Premix Bag 1 BAG IV SCH (17:08)
[2017-08-05] MEDS: HYDROmorphone 1 MG/ML Syringe IVPUSH PRN ×2 (18:20→20:45)
[2017-08-05] MEDS: Dextrose 5%-0.45% NaCl 1,000 ML IV SCH (18:20)
[2017-08-05] MEDS: Saccharomyces Boulardii (Probiotic) 250 MG Cap PO SCH (20:45)
[2017-08-05] MEDS: Pantoprazole 40 MG Vial IV SCH (20:47)
[2017-08-06] MEDS: metroNIDAZOLE/Normal Saline 500 MG in Premix Bag 1 BAG IV SCH ×4 (00:34→23:36)
[2017-08-06] MEDS: Dextrose 5%-0.45% NaCl 1,000 ML IV SCH ×3 (01:50→23:37)
[2017-08-06] MEDS: HYDROmorphone 1 MG/ML Syringe IVPUSH PRN ×4 (02:52→21:02)
[2017-08-06] MEDS: Acetaminophen/HYDROcodone 325-5 MG Tab PO PRN ×3 (02:53→16:04)
[2017-08-06] MEDS: Levofloxacin/Dextrose 5%-Water 750 MG in Premix Bag 1 BAG IV SCH (05:36)
[2017-08-06] MEDS: Pantoprazole 40 MG Vial IV SCH ×2 (08:18→21:05)
[2017-08-06] MEDS: Saccharomyces Boulardii (Probiotic) 250 MG Cap PO SCH ×2 (08:18→21:01)
--- NOTE | 2017-08-06 08:57 | PCM.PN ---
- General Info Date of Service: 08/06/17 Functional Status: Reports: Pain Controlled, Tolerating Diet (NPO) - Review of Systems General: Reports: No Symptoms HEENT: Reports: No Symptoms Pulmonary: Reports: No Symptoms Cardiovascular: Reports: No Symptoms Gastrointestinal: Reports: Abdominal Pain, Decreased Appetite Genitourinary: Reports: No Symptoms Musculoskeletal: Reports: No Symptoms Skin: Reports: No Symptoms Neurological: Reports: No Symptoms Psychiatric: Reports: No Symptoms - Patient Data Vitals - Most Recent: Last Vital Signs Temp 36.9 C 08/06/17 07:41 Pulse 63 08/06/17 07:41 Resp 17 08/06/17 07:41 BP 154/95 H 08/06/17 07:45 Pulse Ox 97 08/06/17 07:41 Weight - Most Recent: 71.713 kg I&O - Last 24 Hours: Intake & Output 08/05/17 08/06/17 08/06/17 22:59 06:59 14:59 Intake Total 20 1727 Output Total 650 Balance 20 1077 Lab Results Last 24 Hours: Laboratory Results - last 24 hr 08/05/17 08/05/17 08/06/17 Range/Units 13:00 14:20 06:25 WBC 24.07 H 14.26 H (3.98-10.04) K/mm3 RBC 5.54 H 5.05 (3.98-5.22) M/mm3 Hgb 16.3 H 15.1 (11.2-15.7) gm/L Hct 48.1 H 44.4 (34.1-44.9) % MCV 86.8 87.9 (79.4-94.8) fl MCH 29.4 29.9 (25.6-32.2) pg MCHC 33.9 34.0 (32.2-35.5) g/dl RDW Std Deviation 41.9 42.2 (36.4-46.3) fL Plt Count 232 186 (182-369) K/mm3 MPV 10.5 10.9 (9.4-12.3) fl Neut % (Auto) 80.0 H (34.0-71.1) % Lymph % (Auto) 12.7 L (19.3-51.7) % [place] % (Auto) 6.8 (4.7-12.5) % Eos % (Auto) 0.1 L (0.7-5.8) Baso % (Auto) 0.1 (0.1-1.2) % Neut # (Auto) 11.41 H (1.56-6.13) K/mm3 Lymph # (Auto) 1.81 (1.18-3.74) K/mm3 [place] # (Auto) 0.97 H (0.24-0.36) K/mm3 Eos # (Auto) 0.02 L (0.04-0.36) K/mm3 Baso # (Auto) 0.01 (0.01-0.08) K/mm3 Sodium 141 (136-145) mEq/L Potassium 3.5 (3.5-5.1) mEq/L Chloride 104 (98-107) mEq/L Carbon Dioxide 25 (21-32) mEq/L Anion Gap 15.5 H (5-15) BUN 12 (7-18) mg/dL Creatinine 0.7 (0.55-1.02) mg/dL Est Cr Clr Drug Dosing 86.18 mL/min Estimated GFR (MDRD) > 60 (>60) mL/min BUN/Creatinine Ratio 17.1 (14-18) Glucose 118 H (74-106) mg/dL Calcium 9.2 (8.5-10.1) mg/dL Magnesium 1.9 (1.8-2.4) mg/dl C-Reactive Protein 1.3 H* (<1.0) mg/dL 08/06/ Range/Units 06:25 WBC (3.98-10.04) K/mm3 RBC (3.98-5.22) M/mm3 Hgb (11.2-15.7) gm/L Hct (34.1-44.9) % MCV (79.4-94.8) fl MCH (25.6-32.2) pg MCHC (32.2-35.5) g/dl RDW Std Deviation (36.4-46.3) fL Plt Count (182-369) K/mm3 MPV (9.4-12.3) fl Neut % (Auto) (34.0-71.1) % Lymph % (Auto) (19.3-51.7) % [place] % (Auto) (4.7-12.5) % Eos % (Auto) (0.7-5.8) Baso % (Auto) (0.1-1.2) % Neut # (Auto) (1.56-6.13) K/mm3 Lymph # (Auto) (1.18-3.74) K/mm3 [place] # (Auto) (0.24-0.36) K/mm3 Eos # (Auto) (0.04-0.36) K/mm3 Baso # (Auto) (0.01-0.08) K/mm3 Sodium 141 (136-145) mEq/L Potassium 3.4 L (3.5-5.1) mEq/L Chloride 105 (98-107) mEq/L Carbon Dioxide 27 (21-32) mEq/L Anion Gap 12.4 (5-15) BUN 8 (7-18) mg/dL Creatinine 0.7 (0.55-1.02) mg/dL Est Cr Clr Drug Dosing 86.18 mL/min Estimated GFR (MDRD) > 60 (>60) mL/min BUN/Creatinine Ratio 11.4 L (14-18) Glucose 109 H (74-106) mg/dL Calcium 8.4 L (8.5-10.1) mg/dL Magnesium 1.7 L (1.8-2.4) mg/dl C-Reactive Protein 2.9 H* (<1.0) mg/dL Med Orders - Current: Current Medications Acetaminophen (Tylenol) 650 mg PO Q4H PRN PRN Reason: Pain (Mild 1-3)/fever Hydrocodone Bitart/Acetaminophen ([place] 325-5 Mg) 1 tab PO Q4H PRN PRN Reason: Pain (moderate 4-6) Last Admin: 08/06/17 08:17 Dose: 1 tab Albuterol (Proventil Neb Soln) 2.5 mg NEB Q2H PRN PRN Reason: Shortness Of Breath/wheezing Hydromorphone HCl (Dilaudid) 0.5 mg IVPUSH Q2H PRN PRN Reason: Pain (severe 7-10) Last Admin: 08/06/17 07:01 Dose: 0.5 mg Dextrose/Sodium Chloride (Dextrose 5%-1/2 Ns) 1,000 mls @ 125 mls/hr IV ASDIRECTED [facility] Last Admin: 08/06/17 01:50 Dose: 125 mls/hr Levofloxacin/Dextrose 750 mg/ (Premix) 150 mls @ 100 mls/hr IV Q24H [facility] Last Admin: 08/06/17 05:36 Dose: 100 mls/hr Metronidazole 500 mg/ Premix 100 mls @ 100 mls/hr IV Q8H [facility] Last Admin: 08/06/17 08:19 Dose: 100 mls/hr Metoclopramide HCl (Reglan) 5 mg IVPUSH Q6H PRN PRN Reason: Nausea/Vomiting Last Admin: 08/06/17 07:00 Dose: 5 mg Ondansetron HCl (Zofran Odt) 4 mg PO Q4H PRN PRN Reason: nausea, able to take PO Ondansetron HCl (Zofran) 4 mg IV Q4H PRN PRN Reason: Nausea/Vomiting Last Admin: 08/06/17 02:52 Dose: 4 mg Pantoprazole Sodium (Protonix Iv) 40 mg IV Q12HR [facility] Last Admin: 08/06/17 08:18 Dose: 40 mg Saccharomyces Boulardii (Florastor) 250 mg PO BID [facility] Last Admin: 08/06/17 08:18 Dose: 250 mg Sodium Chloride (Saline Flush) 10 ml FLUSH ASDIRECTED PRN PRN Reason: Keep Vein Open Last Admin: 08/05/17 06:07 Dose: 10 ml Temazepam (Restoril) 7.5 mg PO BEDTIME PRN PRN Reason: Sleep Witch Shey (Tucks) 1 pad TOP ASDIRECTED PRN PRN Reason: hemmoroids Discontinued Medications Diatrizoate Meglum/Diatrizoate Sod (Gastrografin 37%) 90 ml PO ONETIME ONE Stop: 08/05/17 05:50 Last Admin: 08/05/17 06:07 Dose: 90 ml Famotidine (Pepcid) 20 mg IVPUSH ONETIME ONE Stop: 08/05/17 12:49 Last Admin: 08/05/17 12:55 Dose: 20 mg Hydrocortisone (Hydrocortisone 1% Crm) 0 gm TOP ONETIME ONE Stop: 08/05/17 14:00 Last Admin: 08/05/17 19:26 Dose: Not Given Hydrocortisone (Hydrocortisone 1% Crm) 0 gm TOP ONETIME ONE Stop: 08/05/17 20:01 Last Admin: 08/05/17 22:02 Dose: Not Given Hydrocortisone Acetate (Anucort-Hc) 25 mg RECTAL BID PRN PRN Reason: hemorrhoids/rectal pain Hydromorphone HCl (Dilaudid) 1 mg IVPUSH ONETIME ONE Stop: 08/05/17 04:37 Last Admin: 08/05/17 05:00 Dose: 1 mg Hydromorphone HCl (Dilaudid) 0.5 mg IVPUSH ONETIME ONE Stop: 08/05/17 06:22 Last Admin: 08/05/17 06:30 Dose: 0.5 mg Hydromorphone HCl (Dilaudid) 1 mg IVPUSH NOW STA Stop: 08/05/17 07:47 Last Admin: 08/05/17 07:51 Dose: 1 mg Hydromorphone HCl (Dilaudid) 0.5 mg IVPUSH ONETIME STA Stop: 08/05/17 09:55 Last Admin: 08/05/17 10:13 Dose: 0.5 mg Hydromorphone HCl (Dilaudid) 0.5 mg IVPUSH STAT STA Stop: 08/05/17 12:16 Last Admin: 08/05/17 12:21 Dose: 0.5 mg Sodium Chloride (Normal Saline) 1,000 mls @ 1,000 mls/hr IV .BOLUS STA Stop: 08/05/17 05:33 Last Admin: 08/05/17 05:00 Dose: 1,000 mls/hr Levofloxacin/Dextrose 500 mg/ (Premix) 100 mls @ 100 mls/hr IV ONETIME ONE Stop: 08/05/17 07:40 Last Admin: 08/05/17 06:47 Dose: 100 mls/hr Metronidazole 500 mg/ Premix 100 mls @ 100 mls/hr IV ONETIME ONE Stop: 08/05/17 07:40 Last Admin: 08/05/17 08:08 Dose: 100 mls/hr Iopamidol (Isovue-300 (61%)) 125 ml IVPUSH ONETIME ONE Stop: 08/05/17 05:50 Last Admin: 08/05/17 06:07 Dose: 125 ml Metoclopramide HCl (Reglan) 10 mg IVPUSH ONETIME ONE Stop: 08/05/17 06:22 Last Admin: 08/05/17 06:30 Dose: 10 mg Ondansetron HCl (Zofran) 4 mg IVPUSH ONETIME ONE Stop: 08/05/17 04:35 Last Admin: 08/05/17 05:00 Dose: 4 mg Ondansetron HCl (Zofran) 4 mg IVPUSH ONETIME ONE Stop: 08/05/17 10:13 Last Admin: 08/05/17 10:16 Dose: 4 mg - Exam Quality Assessment: DVT Prophylaxis General: Alert, Oriented, No Acute Distress HEENT: Pupils Equal, Pupils Reactive, EOMI Neck: Trachea Midline, No JVD Lungs: Normal Respiratory Effort, Decreased Breath Sounds, Rhonchi Cardiovascular: Regular Rate, Regular Rhythm GI/Abdominal Exam: Normal Bowel Sounds, Soft, Guarding (no), Rigid (no), Rebound (no), Tender (Female) Exam: Deferred Back Exam: Normal Inspection Extremities: Normal Inspection Skin: Warm Neurological: No New Focal Deficit Psy/Mental Status: Alert, Normal Affect, Normal Mood - Problem List Review Problem List Initiated/Reviewed/Updated: Yes - Plan Plan:: Impression/plan day 2 Colitis, noted on CT scan of the abdomen and pelvis -C. difficile is obtained in the ED and negative, WBCs 4 stool is positive. Awaiting stool cultures. -Nothing by mouth except ice chips and medications. -Follow daily labs, repeat hemoglobin electrolytes and magnesium since admission as was seen in the scaffolder hours to the ED -Strongly suspect inflammatory bowel disease based on patient's age, abrupt onset of symptoms, gem bloody diarrhea, no recent travel no new foods no recent sick contacts or other exposures that she is aware of. -Consider general surgery consult if not improving with bowel rest and conservative treatment -IV hydration with D5 0.45%NS @125cc/hr Hematochezia, plan and treatment as noted above Vomiting -Antiemetics PRN -Protonix IV BID -IV fluid hydration with D5 0.45%NS to run at 125 mL an hour while she is NPO History of hemorrhoids/anal fissures in the past with colonoscopic eval in the past; states last endoscopy ws 4-5 years ago -Preparation H PRN -Tucks wipes PRN Other: Tobacco use/smoking--Nicotine patch DVT prophylax- SCD's GI prophylax as above Ambulate when able Bowel rest except ice chips/meds Am labs Blood cultures ordered on admission Patient is Full Code status PCP is ARVIN Bloom in [place].
[2017-08-06] MEDS ORDERED: Magnesium Sulfate/Water 2 GM in Premix Bag 1 BAG IV ONE (11:48)
[2017-08-06] MEDS ORDERED: Potassium Chloride 10% 20 MEQ/15 ML Soln 30 ML UD Cup PO SCH ×2 (12:00→17:00)
[2017-08-06] MEDS ORDERED: Lactated Ringers 1,000 ML IV SCH (12:00)
[2017-08-06] MEDS: Potassium Chloride 10% 20 MEQ/15 ML Soln 30 ML UD Cup PO SCH ×3 (12:12→16:05)
[2017-08-06] MEDS ORDERED: traMADol 50 MG Tab PO PRN (12:20)
[2017-08-06] MEDS: Ketorolac 30 MG/ML SDV IVPUSH SCH ×3 (12:48→23:36)
[2017-08-06] MEDS: Potassium Chloride 20 MEQ Tab.ER PO SCH (17:27)
[2017-08-07] MEDS: Acetaminophen/HYDROcodone 325-5 MG Tab PO PRN ×5 (01:16→22:36)
[2017-08-07] MEDS: Levofloxacin/Dextrose 5%-Water 750 MG in Premix Bag 1 BAG IV SCH (05:28)
[2017-08-07] MEDS: Ketorolac 30 MG/ML SDV IVPUSH SCH ×3 (05:30→18:25)
[2017-08-07] MEDS: Potassium Chloride 20 MEQ Tab.ER PO SCH ×2 (06:51→11:04)
[2017-08-07] MEDS: HYDROmorphone 1 MG/ML Syringe IVPUSH PRN ×3 (06:59→20:06)
[2017-08-07] MEDS: metroNIDAZOLE/Normal Saline 500 MG in Premix Bag 1 BAG IV SCH ×4 (08:06→23:19)
[2017-08-07] MEDS: Saccharomyces Boulardii (Probiotic) 250 MG Cap PO SCH ×2 (08:06→20:06)
[2017-08-07] MEDS: Pantoprazole 40 MG Vial IV SCH ×2 (08:06→20:06)
[2017-08-07] MEDS: Dextrose 5%-0.45% NaCl 1,000 ML IV SCH ×2 (11:30→20:06)
--- NOTE | 2017-08-07 12:18 | PCM.PN ---
- General Info Date of Service: 08/07/17 Admission Dx/Problem (Free Text): Admission Diagnosis/Problem Admission Diagnosis/Problem GI bleed not requiring more than 4 units of blood in 24 hours, ICU, or surgery Subjective Update: Follow Up Functional Status: Reports: Pain Controlled, Tolerating Diet, Ambulating, Urinating. Denies: New Symptoms Pain Score: 6 - Review of Systems General: Denies: Fever, Chills HEENT: Reports: No Symptoms Pulmonary: Denies: Shortness of Breath Cardiovascular: Denies: Chest Pain Gastrointestinal: Reports: Abdominal Pain, Flatus. Denies: Hematochezia, Melena , Nausea, Vomiting Genitourinary: Reports: No Symptoms Musculoskeletal: Reports: No Symptoms Skin: Denies: Cyanosis, Bruising, Pruritis, Rash Neurological: Denies: Confusion, Difficulty Walking, Weakness, Gait Disturbance Psychiatric: Denies: Depression, Anxiety, Agitation, Hallucinations Systems Review Comment:: No significant overnight or acute issues. She feels much better and her pain is controlled. She has no nausea, vomiting or fever. Her last rectal bleed was yesterday. WBC is now within normal limits. She is C. diff negative. She has no new complaints. - Patient Data Vitals - Most Recent: Last Vital Signs Temp 37.0 C 08/07/17 11:29 Pulse 62 08/07/17 11:29 Resp 18 08/07/17 11:29 BP 125/78 08/07/17 11:29 Pulse Ox 97 08/07/17 11:29 Weight - Most Recent: 72.257 kg I&O - Last 24 Hours: Intake & Output 08/06/17 08/07/17 08/07/17 22:59 06:59 14:59 Intake Total 1572 1331 Output Total 775 1000 Balance 797 331 Lab Results Last 24 Hours: Laboratory Results - last 24 hr 08/07/17 08/07/17 Range/Units 06:36 06:36 WBC 9.33 (3.98-10.04) K/mm3 RBC 4.66 (3.98-5.22) M/mm3 Hgb 13.9 (11.2-15.7) gm/L Hct 41.6 (34.1-44.9) % MCV 89.3 (79.4-94.8) fl MCH 29.8 (25.6-32.2) pg MCHC 33.4 (32.2-35.5) g/dl RDW Std Deviation 42.6 (36.4-46.3) fL Plt Count 160 L (182-369) K/mm3 MPV 10.8 (9.4-12.3) fl Neut % (Auto) 73.5 H (34.0-71.1) % Lymph % (Auto) 17.4 L (19.3-51.7) % [place] % (Auto) 7.6 (4.7-12.5) % Eos % (Auto) 1.0 (0.7-5.8) Baso % (Auto) 0.2 (0.1-1.2) % Neut # (Auto) 6.86 H (1.56-6.13) K/mm3 Lymph # (Auto) 1.62 (1.18-3.74) K/mm3 [place] # (Auto) 0.71 H (0.24-0.36) K/mm3 Eos # (Auto) 0.09 (0.04-0.36) K/mm3 Baso # (Auto) 0.02 (0.01-0.08) K/mm3 Sodium 142 (136-145) mEq/L Potassium 4.0 (3.5-5.1) mEq/L Chloride 107 (98-107) mEq/L Carbon Dioxide 26 (21-32) mEq/L Anion Gap 13.0 (5-15) BUN 4 L (7-18) mg/dL Creatinine 0.7 (0.55-1.02) mg/dL Est Cr Clr Drug Dosing 86.18 mL/min Estimated GFR (MDRD) > 60 (>60) mL/min BUN/Creatinine Ratio 5.7 L (14-18) Glucose 100 (74-106) mg/dL Calcium 8.4 L (8.5-10.1) mg/dL Magnesium 1.9 (1.8-2.4) mg/dl C-Reactive Protein 3.5 H* (<1.0) mg/dL Gurvinder Results Last 24 Hours: Microbiology 08/05/17 13:00 Aerobic Blood Culture - Preliminary Blood - Venous NO GROWTH AFTER 1 DAY Anaerobic Blood Culture - Preliminary NO GROWTH AFTER 1 DAY 08/05/17 12:45 Aerobic Blood Culture - Preliminary Blood - Venous - Lab Draw NO GROWTH AFTER 1 DAY Anaerobic Blood Culture - Preliminary NO GROWTH AFTER 1 DAY Med Orders - Current: Current Medications Acetaminophen (Tylenol) 650 mg PO Q4H PRN PRN Reason: Pain (Mild 1-3)/fever Hydrocodone Bitart/Acetaminophen ([place] 325-5 Mg) 1 tab PO Q4H PRN PRN Reason: Pain (moderate 4-6) Last Admin: 08/07/17 09:49 Dose: 1 tab Albuterol (Proventil Neb Soln) 2.5 mg NEB Q2H PRN PRN Reason: Shortness Of Breath/wheezing Hydromorphone HCl (Dilaudid) 0.5 mg IVPUSH Q2H PRN PRN Reason: Pain (severe 7-10) Last Admin: 08/07/17 06:59 Dose: 0.5 mg Dextrose/Sodium Chloride (Dextrose 5%-1/2 Ns) 1,000 mls @ 125 mls/hr IV ASDIRECTED [facility] Last Admin: 08/07/17 11:30 Dose: 125 mls/hr Levofloxacin/Dextrose 750 mg/ (Premix) 150 mls @ 100 mls/hr IV Q24H [facility] Last Admin: 08/07/17 05:28 Dose: 100 mls/hr Metronidazole 500 mg/ Premix 100 mls @ 100 mls/hr IV Q8H [facility] Last Admin: 08/07/17 08:06 Dose: 100 mls/hr Ketorolac Tromethamine (Toradol) 30 mg IVPUSH Q6H [facility] Stop: 08/07/17 18:31 Last Admin: 08/07/17 11:31 Dose: 30 mg Metoclopramide HCl (Reglan) 5 mg IVPUSH Q6H PRN PRN Reason: Nausea/Vomiting Last Admin: 08/06/17 07:00 Dose: 5 mg Ondansetron HCl (Zofran Odt) 4 mg PO Q4H PRN PRN Reason: nausea, able to take PO Ondansetron HCl (Zofran) 4 mg IV Q4H PRN PRN Reason: Nausea/Vomiting Last Admin: 08/06/17 02:52 Dose: 4 mg Pantoprazole Sodium (Protonix Iv) 40 mg IV Q12HR [facility] Last Admin: 08/07/17 08:06 Dose: 40 mg Potassium Chloride (Pharmacy To Dose - Potassium Replacement) 1 dose .XX ASDIRECTED [facility] Saccharomyces Boulardii (Florastor) 250 mg PO BID [facility] Last Admin: 08/07/17 08:06 Dose: 250 mg Sodium Chloride (Saline Flush) 10 ml FLUSH ASDIRECTED PRN PRN Reason: Keep Vein Open Last Admin: 08/05/17 06:07 Dose: 10 ml Temazepam (Restoril) 7.5 mg PO BEDTIME PRN PRN Reason: Sleep Tramadol HCl (Ultram) 50 mg PO Q8H PRN PRN Reason: Pain Witch Shey (Tucks) 1 pad TOP ASDIRECTED PRN PRN Reason: hemmoroids Discontinued Medications Diatrizoate Meglum/Diatrizoate Sod (Gastrografin 37%) 90 ml PO ONETIME ONE Stop: 08/05/17 05:50 Last Admin: 08/05/17 06:07 Dose: 90 ml Famotidine (Pepcid) 20 mg IVPUSH ONETIME ONE Stop: 08/05/17 12:49 Last Admin: 08/05/17 12:55 Dose: 20 mg Hydrocortisone (Hydrocortisone 1% Crm) 0 gm TOP ONETIME ONE Stop: 08/05/17 14:00 Last Admin: 08/05/17 19:26 Dose: Not Given Hydrocortisone (Hydrocortisone 1% Crm) 0 gm TOP ONETIME ONE Stop: 08/05/17 20:01 Last Admin: 08/05/17 22:02 Dose: Not Given Hydrocortisone Acetate (Anucort-Hc) 25 mg RECTAL BID PRN PRN Reason: hemorrhoids/rectal pain Hydromorphone HCl (Dilaudid) 1 mg IVPUSH ONETIME ONE Stop: 08/05/17 04:37 Last Admin: 08/05/17 05:00 Dose: 1 mg Hydromorphone HCl (Dilaudid) 0.5 mg IVPUSH ONETIME ONE Stop: 08/05/17 06:22 Last Admin: 08/05/17 06:30 Dose: 0.5 mg Hydromorphone HCl (Dilaudid) 1 mg IVPUSH NOW STA Stop: 08/05/17 07:47 Last Admin: 08/05/17 07:51 Dose: 1 mg Hydromorphone HCl (Dilaudid) 0.5 mg IVPUSH ONETIME STA Stop: 08/05/17 09:55 Last Admin: 08/05/17 10:13 Dose: 0.5 mg Hydromorphone HCl (Dilaudid) 0.5 mg IVPUSH STAT [facility] Stop: 08/05/17 12:16 Last Admin: 08/05/17 12:21 Dose: 0.5 mg Sodium Chloride (Normal Saline) 1,000 mls @ 1,000 mls/hr IV .BOLUS STA Stop: 08/05/17 05:33 Last Admin: 08/05/17 05:00 Dose: 1,000 mls/hr Levofloxacin/Dextrose 500 mg/ (Premix) 100 mls @ 100 mls/hr IV ONETIME ONE Stop: 08/05/17 07:40 Last Admin: 08/05/17 06:47 Dose: 100 mls/hr Metronidazole 500 mg/ Premix 100 mls @ 100 mls/hr IV ONETIME ONE Stop: 08/05/17 07:40 Last Admin: 08/05/17 08:08 Dose: 100 mls/hr Magnesium Sulfate 2 gm/ Premix 50 mls @ 25 mls/hr IV ONETIME ONE Stop: 08/06/17 13:47 Last Admin: 08/06/17 12:09 Dose: 25 mls/hr Lactated Ringer's (Ringers, Lactated) 1,000 mls @ 100 mls/hr IV ASDIRECTED [facility] Iopamidol (Isovue-300 (61%)) 125 ml IVPUSH ONETIME ONE Stop: 08/05/17 05:50 Last Admin: 08/05/17 06:07 Dose: 125 ml Metoclopramide HCl (Reglan) 10 mg IVPUSH ONETIME ONE Stop: 08/05/17 06:22 Last Admin: 08/05/17 06:30 Dose: 10 mg Ondansetron HCl (Zofran) 4 mg IVPUSH ONETIME ONE Stop: 08/05/17 04:35 Last Admin: 08/05/17 05:00 Dose: 4 mg Ondansetron HCl (Zofran) 4 mg IVPUSH ONETIME ONE Stop: 08/05/17 10:13 Last Admin: 08/05/17 10:16 Dose: 4 mg Potassium Chloride (Potassium Chloride) 60 meq PO DAILY [facility] Potassium Chloride (Potassium Chloride) 20 meq PO TIDMEALS [facility] Last Admin: 08/06/17 20:19 Dose: Not Given Potassium Chloride (Potassium Chloride) 20 meq PO Q2H [facility] Stop: 08/06/17 15:50 Last Admin: 08/06/17 16:05 Dose: 20 meq Potassium Chloride (Klor-Con M20) 20 meq PO TIDMEALS [facility] Last Admin: 08/07/17 11:04 Dose: Not Given - Exam General: Alert, Oriented, Cooperative, No Acute Distress HEENT: Pupils Equal, Pupils Reactive, EOMI, Mucous Membr. Moist/[place] Neck: Supple, Trachea Midline Lungs: Clear to Auscultation, Normal Respiratory Effort Cardiovascular: Regular Rate, Regular Rhythm GI/Abdominal Exam: Normal Bowel Sounds, Soft, No Organomegaly, No Distention, No Abnormal Bruit, No Mass, Pelvis Stable, Tender. No: Distended, Guarding, Rigid, Rebound (Female) Exam: Deferred Back Exam: Normal Inspection, Decreased Range of Motion Extremities: Normal Inspection, Normal Range of Motion, Non-Tender, No Pedal Edema, Normal Capillary Refill Peripheral Pulses: 2+: Dorsalis Pedis (L), Dorsalis Pedis (R) Skin: Warm, Dry, Intact Neurological: No New Focal Deficit Psy/Mental Status: Alert, Normal Affect, Normal Mood - Problem List Review Problem List Initiated/Reviewed/Updated: Yes - My Orders Last 24 Hours: My Active Orders 08/07/17 11:15 Potassium Rep Pharmacy to Dose [Pharmacy to Dose - Potassium Replacement] 1 dose .XX ASDIRECTED 08/07/17 Lunch Clear Liquid Diet [DIET] - Plan Plan:: Impression/Plan: Acute: Colitis, Improving - Pain is controlled - Noted on CT scan of the abdomen and pelvis - C. difficile/Stool cultures all negative, WBCs 4 stool is positive - WBC resolved - Strongly suspect inflammatory bowel disease based on patient's age - Abrupt onset of symptoms, gem bloody diarrhea, no recent travel no new foods no recent sick contacts or other exposures that she is aware of - Refer to GI after discharge - Consider general surgery consult if not improving with bowel rest and conservative treatment - IV hydration with D5 0.45%NS @125cc/hr S/p Hematochezia - Plan and treatment as noted above Vomiting with Emesis, Improved - Antiemetics PRN - Protonix IV BID -I V fluid hydration with D5 0.45%NS to run at 125 mL an hour while she is NPO History of hemorrhoids/anal fissures in the past with colonoscopic eval in the past; states last endoscopy ws 4-5 years ago - Preparation H PRN - Tucks wipes PRN Other: Tobacco use/smoking--Nicotine patch Plan: She is clinically stable Continue current IV treatment Start clear liquid diet, advance as tolerated (non-fatty/non greasy meal) DVT prophylaxIs: SCD's GI prophylaxis: PPIs Ambulate when able Patient is Full Code status D/c once able to tolerate regular meal PCP is ARVIN Bloom in [place].
[2017-08-08] MEDS: Levofloxacin/Dextrose 5%-Water 750 MG in Premix Bag 1 BAG IV SCH ×2 (04:42→06:15)
[2017-08-08] MEDS: Acetaminophen/HYDROcodone 325-5 MG Tab PO PRN ×4 (04:42→20:51)
[2017-08-08] MEDS: Dextrose 5%-0.45% NaCl 1,000 ML IV SCH (04:42)
[2017-08-08] MEDS: Saccharomyces Boulardii (Probiotic) 250 MG Cap PO SCH ×2 (08:30→20:51)
[2017-08-08] MEDS: Pantoprazole 40 MG Vial IV SCH (08:30)
[2017-08-08] MEDS: metroNIDAZOLE/Normal Saline 500 MG in Premix Bag 1 BAG IV SCH ×2 (08:30→16:02)
[2017-08-08] MEDS ORDERED: Pantoprazole 40 MG Tab.CR PO SCH (10:34)
--- NOTE | 2017-08-08 12:16 | PCM.PN ---
- General Info Date of Service: 08/08/17 Admission Dx/Problem (Free Text): Admission Diagnosis/Problem Admission Diagnosis/Problem GI bleed not requiring more than 4 units of blood in 24 hours, ICU, or surgery Subjective Update: In to see Ellie today. She is laying in bed. She reports her only pain was when she attempted to have milk with breakfast. She states she is going to try to avoid milk from here on out. She will be advanced to soft diet today for lunch. She will be advanced to full diet for supper if she tolerates this well. Possible discharge tomorrow a.m. She will need to follow-up with GI at discharge. She's not had any bloody stool. Functional Status: Reports: Pain Controlled, Tolerating Diet, Ambulating, Urinating. Denies: New Symptoms - Review of Systems General: Reports: No Symptoms. Denies: Fever, Weakness, Fatigue, Malaise HEENT: Reports: No Symptoms. Denies: Ear Pain, Eye Pain, Sinus Congestion, Sore Throat, Visual Changes Pulmonary: Reports: No Symptoms. Denies: Shortness of Breath, Pleuritic Chest Pain, Cough, Sputum Cardiovascular: Reports: No Symptoms. Denies: Chest Pain, Palpitations, Dyspnea on Exertion, Orthopnea, Edema Gastrointestinal: Reports: Abdominal Pain (Epigastric > LUQ). Denies: Constipation, Diarrhea, Hematochezia, Melena, Nausea, Vomiting Genitourinary: Reports: No Symptoms. Denies: Dysuria, Frequency, Burning, Pain , Urgency, Incontinence Musculoskeletal: Reports: No Symptoms Skin: Reports: No Symptoms Neurological: Reports: No Symptoms Psychiatric: Reports: No Symptoms - Patient Data Vitals - Most Recent: Last Vital Signs Temp 98.1 F 08/08/17 08:33 Pulse 69 08/08/17 08:33 Resp 16 08/08/17 08:33 BP 118/66 08/08/17 08:33 Pulse Ox 97 08/08/17 08:33 Weight - Most Recent: 160 lb 3.2 oz I&O - Last 24 Hours: Intake & Output 08/07/17 08/08/17 08/08/17 22:59 06:59 14:59 Intake Total 2550 2147 360 Output Total 1250 3 Balance 1300 2144 360 Lab Results Last 24 Hours: Laboratory Results - last 24 hr 08/08/17 08/08/17 Range/Units 06:35 06:35 WBC 5.41 (3.98-10.04) K/mm3 RBC 4.35 (3.98-5.22) M/mm3 Hgb 13.0 (11.2-15.7) gm/L Hct 38.6 (34.1-44.9) % MCV 88.7 (79.4-94.8) fl MCH 29.9 (25.6-32.2) pg MCHC 33.7 (32.2-35.5) g/dl RDW Std Deviation 41.2 (36.4-46.3) fL Plt Count 164 L (182-369) K/mm3 MPV 10.9 (9.4-12.3) fl Neut % (Auto) 57.9 (34.0-71.1) % Lymph % (Auto) 27.4 (19.3-51.7) % [place] % (Auto) 9.1 (4.7-12.5) % Eos % (Auto) 3.7 (0.7-5.8) Baso % (Auto) 0.4 (0.1-1.2) % Neut # (Auto) 3.14 (1.56-6.13) K/mm3 Lymph # (Auto) 1.48 (1.18-3.74) K/mm3 [place] # (Auto) 0.49 H (0.24-0.36) K/mm3 Eos # (Auto) 0.20 (0.04-0.36) K/mm3 Baso # (Auto) 0.02 (0.01-0.08) K/mm3 Sodium 144 (136-145) mEq/L Potassium 3.7 (3.5-5.1) mEq/L Chloride 108 H (98-107) mEq/L Carbon Dioxide 27 (21-32) mEq/L Anion Gap 12.7 (5-15) BUN 3 L (7-18) mg/dL Creatinine 0.7 (0.55-1.02) mg/dL Est Cr Clr Drug Dosing 86.18 mL/min Estimated GFR (MDRD) > 60 (>60) mL/min BUN/Creatinine Ratio 4.3 L (14-18) Glucose 100 (74-106) mg/dL Calcium 8.5 (8.5-10.1) mg/dL Magnesium 1.8 (1.8-2.4) mg/dl C-Reactive Protein 1.6 H* (<1.0) mg/dL Gurvinder Results Last 24 Hours: Microbiology 08/05/17 13:00 Aerobic Blood Culture - Preliminary Blood - Venous NO GROWTH AFTER 2 DAYS Anaerobic Blood Culture - Preliminary NO GROWTH AFTER 2 DAYS 08/05/17 12:45 Aerobic Blood Culture - Preliminary Blood - Venous - Lab Draw NO GROWTH AFTER 2 DAYS Anaerobic Blood Culture - Preliminary NO GROWTH AFTER 2 DAYS Med Orders - Current: Current Medications Acetaminophen (Tylenol) 650 mg PO Q4H PRN PRN Reason: Pain (Mild 1-3)/fever Hydrocodone Bitart/Acetaminophen ([place] 325-5 Mg) 1 tab PO Q4H PRN PRN Reason: Pain (moderate 4-6) Last Admin: 08/08/17 11:01 Dose: 1 tab Albuterol (Proventil Neb Soln) 2.5 mg NEB Q2H PRN PRN Reason: Shortness Of Breath/wheezing Dextrose/Sodium Chloride (Dextrose 5%-1/2 Ns) 1,000 mls @ 125 mls/hr IV ASDIRECTED [facility] Last Admin: 08/08/17 04:42 Dose: 125 mls/hr Levofloxacin/Dextrose 750 mg/ (Premix) 150 mls @ 100 mls/hr IV Q24H [facility] Last Admin: 08/08/17 06:15 Dose: Not Given Metronidazole 500 mg/ Premix 100 mls @ 100 mls/hr IV Q8H [facility] Last Admin: 08/08/17 08:30 Dose: 100 mls/hr Metoclopramide HCl (Reglan) 5 mg IVPUSH Q6H PRN PRN Reason: Nausea/Vomiting Last Admin: 08/06/17 07:00 Dose: 5 mg Miscellaneous Information (Remove Patch) 0 ea TRDERM DAILY [facility] Nicotine (Habitrol) 14 mg TRDERM DAILY [facility] Ondansetron HCl (Zofran Odt) 4 mg PO Q4H PRN PRN Reason: nausea, able to take PO Ondansetron HCl (Zofran) 4 mg IV Q4H PRN PRN Reason: Nausea/Vomiting Last Admin: 08/06/17 02:52 Dose: 4 mg Pantoprazole Sodium (Protonix) 40 mg PO Q12HR [facility] Potassium Chloride (Pharmacy To Dose - Potassium Replacement) 1 dose .XX ASDIRECTED [facility] Saccharomyces Boulardii (Florastor) 250 mg PO BID [facility] Last Admin: 08/08/17 08:30 Dose: 250 mg Sodium Chloride (Saline Flush) 10 ml FLUSH ASDIRECTED PRN PRN Reason: Keep Vein Open Last Admin: 08/05/17 06:07 Dose: 10 ml Temazepam (Restoril) 7.5 mg PO BEDTIME PRN PRN Reason: Sleep Tramadol HCl (Ultram) 50 mg PO Q8H PRN PRN Reason: Pain Witch Shey (Tucks) 1 pad TOP ASDIRECTED PRN PRN Reason: hemmoroids Last Admin: 08/07/17 19:00 Dose: 1 applic Discontinued Medications Diatrizoate Meglum/Diatrizoate Sod (Gastrografin 37%) 90 ml PO ONETIME ONE Stop: 08/05/17 05:50 Last Admin: 08/05/17 06:07 Dose: 90 ml Famotidine (Pepcid) 20 mg IVPUSH ONETIME ONE Stop: 08/05/17 12:49 Last Admin: 08/05/17 12:55 Dose: 20 mg Hydrocortisone (Hydrocortisone 1% Crm) 0 gm TOP ONETIME ONE Stop: 08/05/17 14:00 Last Admin: 08/05/17 19:26 Dose: Not Given Hydrocortisone (Hydrocortisone 1% Crm) 0 gm TOP ONETIME ONE Stop: 08/05/17 20:01 Last Admin: 08/05/17 22:02 Dose: Not Given Hydrocortisone Acetate (Anucort-Hc) 25 mg RECTAL BID PRN PRN Reason: hemorrhoids/rectal pain Hydromorphone HCl (Dilaudid) 1 mg IVPUSH ONETIME ONE Stop: 08/05/17 04:37 Last Admin: 08/05/17 05:00 Dose: 1 mg Hydromorphone HCl (Dilaudid) 0.5 mg IVPUSH ONETIME ONE Stop: 08/05/17 06:22 Last Admin: 08/05/17 06:30 Dose: 0.5 mg Hydromorphone HCl (Dilaudid) 1 mg IVPUSH NOW STA Stop: 08/05/17 07:47 Last Admin: 08/05/17 07:51 Dose: 1 mg Hydromorphone HCl (Dilaudid) 0.5 mg IVPUSH ONETIME STA Stop: 08/05/17 09:55 Last Admin: 08/05/17 10:13 Dose: 0.5 mg Hydromorphone HCl (Dilaudid) 0.5 mg IVPUSH STAT STA Stop: 08/05/17 12:16 Last Admin: 08/05/17 12:21 Dose: 0.5 mg Hydromorphone HCl (Dilaudid) 0.5 mg IVPUSH Q2H PRN PRN Reason: Pain (severe 7-10) Last Admin: 08/07/17 20:06 Dose: 0.5 mg Sodium Chloride (Normal Saline) 1,000 mls @ 1,000 mls/hr IV .BOLUS STA Stop: 08/05/17 05:33 Last Admin: 08/05/17 05:00 Dose: 1,000 mls/hr Levofloxacin/Dextrose 500 mg/ (Premix) 100 mls @ 100 mls/hr IV ONETIME ONE Stop: 08/05/17 07:40 Last Admin: 08/05/17 06:47 Dose: 100 mls/hr Metronidazole 500 mg/ Premix 100 mls @ 100 mls/hr IV ONETIME ONE Stop: 08/05/17 07:40 Last Admin: 08/05/17 08:08 Dose: 100 mls/hr Magnesium Sulfate 2 gm/ Premix 50 mls @ 25 mls/hr IV ONETIME ONE Stop: 08/06/17 13:47 Last Admin: 08/06/17 12:09 Dose: 25 mls/hr Lactated Ringer's (Ringers, Lactated) 1,000 mls @ 100 mls/hr IV ASDIRECTED [facility] Iopamidol (Isovue-300 (61%)) 125 ml IVPUSH ONETIME ONE Stop: 08/05/17 05:50 Last Admin: 08/05/17 06:07 Dose: 125 ml Ketorolac Tromethamine (Toradol) 30 mg IVPUSH Q6H [facility] Stop: 08/07/17 18:31 Last Admin: 08/07/17 18:25 Dose: 30 mg Metoclopramide HCl (Reglan) 10 mg IVPUSH ONETIME ONE Stop: 08/05/17 06:22 Last Admin: 08/05/17 06:30 Dose: 10 mg Ondansetron HCl (Zofran) 4 mg IVPUSH ONETIME ONE Stop: 08/05/17 04:35 Last Admin: 08/05/17 05:00 Dose: 4 mg Ondansetron HCl (Zofran) 4 mg IVPUSH ONETIME ONE Stop: 08/05/17 10:13 Last Admin: 08/05/17 10:16 Dose: 4 mg Pantoprazole Sodium (Protonix Iv) 40 mg IV Q12HR [facility] Last Admin: 08/08/17 08:30 Dose: 40 mg Potassium Chloride (Potassium Chloride) 60 meq PO DAILY [facility] Potassium Chloride (Potassium Chloride) 20 meq PO TIDMEALS [facility] Last Admin: 08/06/17 20:19 Dose: Not Given Potassium Chloride (Potassium Chloride) 20 meq PO Q2H [facility] Stop: 08/06/17 15:50 Last Admin: 08/06/17 16:05 Dose: 20 meq Potassium Chloride (Klor-Con M20) 20 meq PO TIDMEALS [facility] Last Admin: 08/07/17 11:04 Dose: Not Given - Exam Quality Assessment: DVT Prophylaxis General: Alert, Oriented, Cooperative, No Acute Distress HEENT: Pupils Equal, Pupils Reactive, EOMI, Mucous Membr. Moist/[place] Neck: Supple, Trachea Midline, No JVD, No Thyromegaly Lungs: Clear to Auscultation, Normal Respiratory Effort Cardiovascular: Regular Rate, Regular Rhythm, No Murmurs GI/Abdominal Exam: Normal Bowel Sounds, Soft, Non-Tender, No Organomegaly, No Distention, No Abnormal Bruit, No Mass, Pelvis Stable (Female) Exam: Deferred Back Exam: Normal Inspection, Full Range of Motion. No: CVA Tenderness (L), CVA Tenderness (R) Extremities: Normal Inspection, Normal Range of Motion, Non-Tender, No Pedal Edema, Normal Capillary Refill Peripheral Pulses: 2+: Radial (L), Radial (R), Posterior Tibial (L), Posterior Tibial (R), Dorsalis Pedis (L), Dorsalis Pedis (R) Skin: Warm, Dry, Intact Neurological: No New Focal Deficit Psy/Mental Status: Alert, Normal Affect, Normal Mood - Problem List & Annotations (1) Colitis SNOMED Code(s): 89618029 Code(s): K52.9 - NONINFECTIVE GASTROENTERITIS AND COLITIS, UNSPECIFIED Status: Acute Priority: High Current Visit: Yes (2) Hematochezia SNOMED Code(s): 614678339 Code(s): K92.1 - MELENA Status: Acute Priority: High Current Visit: Yes (3) Acute hemorrhoid SNOMED Code(s): 66506286 Code(s): K64.9 - UNSPECIFIED HEMORRHOIDS Status: Acute Priority: Medium Current Visit: Yes (4) Vomiting SNOMED Code(s): 627304052 Code(s): R11.10 - VOMITING, UNSPECIFIED Status: Resolved Priority: High Current Visit: Yes - Problem List Review Problem List Initiated/Reviewed/Updated: Yes - My Orders Last 24 Hours: My Active Orders 08/08/17 Lunch [place] Diet [DIET] 08/09/17 09:00 Nicotine [Habitrol] 14 mg TRDERM DAILY - Plan Plan:: Impression/Plan: Acute: Colitis, Improving - Pain is controlled - discussed diet modifications - Noted on CT scan of the abdomen and pelvis - C. difficile/Stool cultures all negative, WBCs 4 stool is positive - WBC resolved - Strongly suspect inflammatory bowel disease based on patient's age - Abrupt onset of symptoms, gem bloody diarrhea, no recent travel no new foods no recent sick contacts or other exposures that she is aware of - Refer to GI after discharge - Consider general surgery consult if not improving with bowel rest and conservative treatment - IV hydration with D5 0.45%NS @125cc/hr - discontinue now that eating and drinking S/p Hematochezia - Plan and treatment as noted above History of hemorrhoids/anal fissures in the past with colonoscopic eval in the past; states last endoscopy ws 4-5 years ago - Preparation H PRN - Tucks wipes PRN Resolved: Vomiting with Emesis, - Antiemetics PRN - Protonix IV BID - IV fluid hydration with D5 0.45%NS to run at 125 mL an hour while she is NPO Other: Tobacco use/smoking--Nicotine patch Plan: She is clinically stable Continue current IV treatment Start bland soft diet, advance as tolerated (non-fatty/non greasy meal) DVT prophylaxIs: SCD's GI prophylaxis: PPIs Ambulate when able Patient is Full Code status D/c once able to tolerate regular meal PCP is ARVIN Bloom in [place].
[2017-08-09] MEDS: metroNIDAZOLE/Normal Saline 500 MG in Premix Bag 1 BAG IV SCH (00:57)
[2017-08-09] MEDS ORDERED: Levofloxacin 750 MG Tab ONE (08:18)
[2017-08-09] MEDS ORDERED: metroNIDAZOLE 500 MG Tab ONE (08:18)
[2017-08-09] MEDS ORDERED: Nicotine 14 MG/24 Hr Patch TRDERM SCH (09:00)
[2017-08-09 16:07] VITALS: BP 127/77
--- NOTE | 2017-08-09 16:38 | PCM.DCSUM1 ---
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 This came on acutely at approximately 6 PM last evening initially with crampy abdominal pain around her umbilicus then with vomiting then with bloody diarrhea to follow immediately after her vomiting. She is unable to count how many times she has vomited or had bloody diarrhea since 6 PM but it has been multiple multiple times. She felt well prior to 6 PM with no concerns complaints of abdominal pain, heartburn or any other problems. She denies any new foods drink exposure to illness or other sick contacts. She's not had any travel outside of the state with the country. She' s never had any episodes like this before. No history of inflammatory bowel disease or other similar problems. No family history of IBD. She does report she's had colonoscopies in the past which have been normal, last one being 4-5 years ago. She does state she has hemorrhoids and has had an anal fissure in the past both with bleeding which had precipitated the colonoscopies. She denies fevers chills or sweats. No back pain. No chest pain racing heartbeats shortness of breath. No dizziness. She's not had history of anemia in the past. No bowel surgeries. She has had a hysterectomy with anterior and posterior repair. She has 3 children. She works at [employer] in [place]. She does smoke cigarettes half a pack a day for 20 years. She denies any alcohol use. ER evaluation is as follows: CBC is with WBC of 17.90, RBC 5.84, and hemoglobin 17.4, hematocrit 50.8, platelets normal at 241. CMP is within normal sodium- potassium B UN and creatinine. Glucose is 123. Liver enzymes normal AST, ALP, ALP is elevated at 147. Normal bilirubin. Lipase is normal at 78. Urine test is negative, she is status post hysterectomy. UA is with turbid- appearing urine specific gravity greater than 1.0302+ protein, 2+ ketones, 2+ blood, negative nitrates, 1+ bilirubin, negative leukocytes. C. difficile obtained in the emergency department is negative. She did have a CT of the abdominal abdomen and pelvis showing diffuse colonic wall thickening most prominent within the transverse and right colon. Findings compatible with nonspecific colitis. Slightly dilated upper small bowel most likely REM presenting a mild focal ileus due to colitis. Fatty infiltration within the liver. She received 1 L of normal saline, Zofran 4 mg, Dilaudid IV 2, Reglan 10 mg IV. She also received Flagyl 500 mg IV and Levaquin 500 mg IV. Hospitalist service is consulted for admission for hematochezia and abdominal pain. PCP is Ondina Jade with [facility]. Patient was admitted, hydrated and treated with antiemetics. Nausea and vomiting subsided. She was kept nothing by mouth for a period of time diet was slowly advanced and tolerated well. We blood cell called and improved and normalized. CRP initially went up and then improved. Stool studies were obtained cultures and C. difficile were negative. She was up and ambulatory tolerating well. She will be discharged home today with follow-up with PCP, Ondina SHERIDAN, within 5-7 days. Recommend GI consult for further evaluation and recommendations as outpatient. - Discharge Data Discharge Date: 08/09/17 Discharge Disposition: Home, Self-Care 01 Condition: Good - Discharge Diagnosis/Problem(s) (1) Colitis SNOMED Code(s): 29594553 ICD Code: K52.9 - NONINFECTIVE GASTROENTERITIS AND COLITIS, UNSPECIFIED Status: Acute Priority: High Current Visit: Yes (2) Hematochezia SNOMED Code(s): 448839812 ICD Code: K92.1 - MELENA Status: Acute Priority: High Current Visit: Yes (3) Ileus SNOMED Code(s): 398451342 ICD Code: K56.7 - ILEUS, UNSPECIFIED Status: Acute Priority: High Current Visit: Yes (4) Vomiting SNOMED Code(s): 898715247 ICD Code: R11.10 - VOMITING, UNSPECIFIED Status: Resolved Priority: High Current Visit: Yes - Patient Summary/Data Operative Procedure(s) Performed: None Complications: None Consults: None Labs Pending at D/C: None Recommended Follow-up Testing/Procedures: Follow up with PCP, ARVIN Bloom within 5-7 days of discharge [place] diet, advance as tolerated. No work until 08/12/17. Recommend GI eval/workup as an outpatient. Planned Operative Procedure(s) after DC: None - Patient Instructions Diet: GI Soft/Low Residue/Low Fiber (advance as tolerated) Activity: As Tolerated, Rest and Relax Today Showering/Bathing: May Shower Notify Provider of: Fever, Increased Pain, Nausea and/or Vomiting - Discharge Plan Home Medications: Home Meds Ibuprofen 800 mg PO Q8HR PRN 08/05/17 [History] Patient Handouts: Gastrointestinal Bleeding Forms: ED Department Discharge Referrals: PCP,None [Primary Care Provider] - - Discharge Summary/Plan Comment DC Time >30 min.: Yes (40 min) Discharge Summary/Plan Comment: For DC medications see hand written DC instructions as Arabella was down during time of discharge She is DC'd on levaquin, flagyl x 10 days and floragen x 30 days. - General Info Date of Service: 08/09/17 Admission Dx/Problem (Free Text: Admission Diagnosis/Problem Admission Diagnosis/Problem GI bleed not requiring more than 4 units of blood in 24 hours, ICU, or surgery Functional Status: Reports: Pain Controlled, Tolerating Diet, Ambulating, Urinating, Incentive Spirometry. Denies: New Symptoms - Review of Systems General: Reports: No Symptoms HEENT: Reports: No Symptoms Pulmonary: Reports: No Symptoms Cardiovascular: Reports: No Symptoms Gastrointestinal: Reports: Abdominal Pain (very minimal). Denies: Decreased Appetite, Diarrhea, Nausea, Vomiting Genitourinary: Reports: No Symptoms Musculoskeletal: Reports: No Symptoms Skin: Reports: No Symptoms Neurological: Reports: No Symptoms Psychiatric: Reports: No Symptoms - Patient Data Vitals - Most Recent: Last Vital Signs Temp 97.5 F 08/08/17 23:50 Pulse 56 L 08/08/17 23:50 Resp 16 08/08/17 23:50 BP 140/80 08/08/17 23:51 Pulse Ox 98 08/08/17 23:50 Weight - Most Recent: 160 lb 3.2 oz I&O - Last 24 hours: Intake & Output 08/08/17 08/09/17 08/09/17 22:59 06:59 14:59 Intake Total 2260 120 Output Total 5 Balance 2255 120 JIMBO Results - Last 24 hrs: Microbiology 08/05/17 13:00 Aerobic Blood Culture - Preliminary Blood - Venous NO GROWTH AFTER 3 DAYS Anaerobic Blood Culture - Preliminary NO GROWTH AFTER 3 DAYS 08/05/17 12:45 Aerobic Blood Culture - Preliminary Blood - Venous - Lab Draw NO GROWTH AFTER 3 DAYS Anaerobic Blood Culture - Preliminary NO GROWTH AFTER 3 DAYS Med Orders - Current: Current Medications Acetaminophen (Tylenol) 650 mg PO Q4H PRN PRN Reason: Pain (Mild 1-3)/fever Hydrocodone Bitart/Acetaminophen ([place] 325-5 Mg) 1 tab PO Q4H PRN PRN Reason: Pain (moderate 4-6) Last Admin: 08/08/17 20:51 Dose: 1 tab Albuterol (Proventil Neb Soln) 2.5 mg NEB Q2H PRN PRN Reason: Shortness Of Breath/wheezing Levofloxacin/Dextrose 750 mg/ (Premix) 150 mls @ 100 mls/hr IV Q24H [facility] Last Admin: 08/08/17 06:15 Dose: Not Given Metronidazole 500 mg/ Premix 100 mls @ 100 mls/hr IV Q8H [facility] Last Admin: 08/09/17 00:57 Dose: 100 mls/hr Metoclopramide HCl (Reglan) 5 mg IVPUSH Q6H PRN PRN Reason: Nausea/Vomiting Last Admin: 08/06/17 07:00 Dose: 5 mg Miscellaneous Information (Remove Patch) 0 ea TRDERM DAILY [facility] Nicotine (Habitrol) 14 mg TRDERM DAILY [facility] Ondansetron HCl (Zofran Odt) 4 mg PO Q4H PRN PRN Reason: nausea, able to take PO Ondansetron HCl (Zofran) 4 mg IV Q4H PRN PRN Reason: Nausea/Vomiting Last Admin: 08/06/17 02:52 Dose: 4 mg Pantoprazole Sodium (Protonix) 40 mg PO Q12HR [facility] Last Admin: 08/08/17 20:51 Dose: 40 mg Potassium Chloride (Pharmacy To Dose - Potassium Replacement) 1 dose .XX ASDIRECTED [facility] Saccharomyces Boulardii (Florastor) 250 mg PO BID [facility] Last Admin: 08/08/17 20:51 Dose: 250 mg Sodium Chloride (Saline Flush) 10 ml FLUSH ASDIRECTED PRN PRN Reason: Keep Vein Open Last Admin: 08/05/17 06:07 Dose: 10 ml Temazepam (Restoril) 7.5 mg PO BEDTIME PRN PRN Reason: Sleep Tramadol HCl (Ultram) 50 mg PO Q8H PRN PRN Reason: Pain Witch Shey (Tucks) 1 pad TOP ASDIRECTED PRN PRN Reason: hemmoroids Last Admin: 08/07/17 19:00 Dose: 1 applic Discontinued Medications Diatrizoate Meglum/Diatrizoate Sod (Gastrografin 37%) 90 ml PO ONETIME ONE Stop: 08/05/17 05:50 Last Admin: 08/05/17 06:07 Dose: 90 ml Famotidine (Pepcid) 20 mg IVPUSH ONETIME ONE Stop: 08/05/17 12:49 Last Admin: 08/05/17 12:55 Dose: 20 mg Hydrocortisone (Hydrocortisone 1% Crm) 0 gm TOP ONETIME ONE Stop: 08/05/17 14:00 Last Admin: 08/05/17 19:26 Dose: Not Given Hydrocortisone (Hydrocortisone 1% Crm) 0 gm TOP ONETIME ONE Stop: 08/05/17 20:01 Last Admin: 08/05/17 22:02 Dose: Not Given Hydrocortisone Acetate (Anucort-Hc) 25 mg RECTAL BID PRN PRN Reason: hemorrhoids/rectal pain Hydromorphone HCl (Dilaudid) 1 mg IVPUSH ONETIME ONE Stop: 08/05/17 04:37 Last Admin: 08/05/17 05:00 Dose: 1 mg Hydromorphone HCl (Dilaudid) 0.5 mg IVPUSH ONETIME ONE Stop: 08/05/17 06:22 Last Admin: 08/05/17 06:30 Dose: 0.5 mg Hydromorphone HCl (Dilaudid) 1 mg IVPUSH NOW STA Stop: 08/05/17 07:47 Last Admin: 08/05/17 07:51 Dose: 1 mg Hydromorphone HCl (Dilaudid) 0.5 mg IVPUSH ONETIME STA Stop: 08/05/17 09:55 Last Admin: 08/05/17 10:13 Dose: 0.5 mg Hydromorphone HCl (Dilaudid) 0.5 mg IVPUSH STAT STA Stop: 08/05/17 12:16 Last Admin: 08/05/17 12:21 Dose: 0.5 mg Hydromorphone HCl (Dilaudid) 0.5 mg IVPUSH Q2H PRN PRN Reason: Pain (severe 7-10) Last Admin: 08/07/17 20:06 Dose: 0.5 mg Sodium Chloride (Normal Saline) 1,000 mls @ 1,000 mls/hr IV .BOLUS STA Stop: 08/05/17 05:33 Last Admin: 08/05/17 05:00 Dose: 1,000 mls/hr Levofloxacin/Dextrose 500 mg/ (Premix) 100 mls @ 100 mls/hr IV ONETIME ONE Stop: 08/05/17 07:40 Last Admin: 08/05/17 06:47 Dose: 100 mls/hr Metronidazole 500 mg/ Premix 100 mls @ 100 mls/hr IV ONETIME ONE Stop: 08/05/17 07:40 Last Admin: 08/05/17 08:08 Dose: 100 mls/hr Dextrose/Sodium Chloride (Dextrose 5%-1/2 Ns) 1,000 mls @ 125 mls/hr IV ASDIRECTED [facility] Last Admin: 08/08/17 04:42 Dose: 125 mls/hr Magnesium Sulfate 2 gm/ Premix 50 mls @ 25 mls/hr IV ONETIME ONE Stop: 08/06/17 13:47 Last Admin: 08/06/17 12:09 Dose: 25 mls/hr Lactated Ringer's (Ringers, Lactated) 1,000 mls @ 100 mls/hr IV ASDIRECTED [facility] Iopamidol (Isovue-300 (61%)) 125 ml IVPUSH ONETIME ONE Stop: 08/05/17 05:50 Last Admin: 08/05/17 06:07 Dose: 125 ml Ketorolac Tromethamine (Toradol) 30 mg IVPUSH Q6H [facility] Stop: 08/07/17 18:31 Last Admin: 08/07/17 18:25 Dose: 30 mg Metoclopramide HCl (Reglan) 10 mg IVPUSH ONETIME ONE Stop: 08/05/17 06:22 Last Admin: 08/05/17 06:30 Dose: 10 mg Ondansetron HCl (Zofran) 4 mg IVPUSH ONETIME ONE Stop: 08/05/17 04:35 Last Admin: 08/05/17 05:00 Dose: 4 mg Ondansetron HCl (Zofran) 4 mg IVPUSH ONETIME ONE Stop: 08/05/17 10:13 Last Admin: 08/05/17 10:16 Dose: 4 mg Pantoprazole Sodium (Protonix Iv) 40 mg IV Q12HR [facility] Last Admin: 08/08/17 08:30 Dose: 40 mg Potassium Chloride (Potassium Chloride) 60 meq PO DAILY [facility] Potassium Chloride (Potassium Chloride) 20 meq PO TIDMEALS [facility] Last Admin: 08/06/17 20:19 Dose: Not Given Potassium Chloride (Potassium Chloride) 20 meq PO Q2H [facility] Stop: 08/06/17 15:50 Last Admin: 08/06/17 16:05 Dose: 20 meq Potassium Chloride (Klor-Con M20) 20 meq PO TIDMEALS [facility] Last Admin: 08/07/17 11:04 Dose: Not Given - Exam Quality Assessment: Reports: DVT Prophylaxis General: Reports: Alert, Oriented, Cooperative, No Acute Distress HEENT: Reports: Pupils Equal, EOMI, Mucous Membr. Moist/[place] Neck: Reports: Supple Lungs: Reports: Clear to Auscultation, Normal Respiratory Effort Cardiovascular: Reports: Regular Rate, Regular Rhythm GI/Abdominal Exam: Normal Bowel Sounds, Soft, Non-Tender (Female) Exam: Deferred Rectal (Female) Exam: Deferred Extremities: Normal Inspection, No Pedal Edema, Normal Capillary Refill Neurological: Reports: No New Focal Deficit Psy/Mental Status: Reports: Alert, Normal Affect, Normal Mood *Q Meaningful Use (DIS) - VTE *Q VTE Criteria *Q: - Stroke *Q Stroke Criteria *Q: - AMI *Q AMI Criteria *Q:
== END 2017-08-09 10:22 | disposition home or self-care (01) | DRG 379 ==
LOC: JD.ED 04:15 → JD.ICU 07:45 → UNDOADMIN 07:45 → JD.ICU 09:20 → JD.MS 12:17 → JD.ICU 12:49
PROVIDERS: ADMIT Internal Medicine Cardiovascular Disease; ATTEND Internal Medicine Cardiovascular Disease
DX: R50.9 Fever, unspecified (principal); K92.1 Melena; K56.7 Ileus, unspecified; K52.9 Noninfective gastroenteritis and colitis, unspecified; E78.00 Pure hypercholesterolemia, unspecified; F32.9 Major depressive disorder, single episode, unspecified; F41.9 Anxiety disorder, unspecified; G89.29 Other chronic pain; M54.9 Dorsalgia, unspecified; R11.2 Nausea with vomiting, unspecified; F17.210 Nicotine dependence, cigarettes, uncomplicated; K64.9 Unspecified hemorrhoids; Z88.0 Allergy status to penicillin; Z88.8 Allergy status to other drugs, medicaments and biological substances
CPT/HCPCS: 36415; 74177; 80053; 81001; 82272; 83690; 84703; 85025; 87046; 87427 ×2; 87493 ×2; 89055; 96361; 96365; 96367; 96375; 96376; 99285; J1170 ×3; J1956; J2405; J2765; J7040; J7050 ×2; Q9963; Q9967; 80048; 83735; 85027; 86140; 87040; 99284; A9270-GY; C9113; J1885; J3475; J7042